=== PATIENT | female | born 1985 | race Caucasian/White ===

== ENCOUNTER 2022-10-05 02:41 | Emergency (ER) | payer OTHER, SELFPAY ==
[2022-10-05 03:51] LABS: SARS-CoV-2 RNA PCR Positive
--- NOTE | 2022-10-05 05:33 | ED.GENADULT ---
HPI - General Adult General Chief complaint: Unspecified Stated complaint: covid swab Time Seen by Provider: 10/05/22 05:29 Source: patient and RN notes reviewed Mode of arrival: ambulatory Limitations: no limitations History of Present Illness HPI narrative: This is a 37 year old transgender male who presents for evaluation of covid. PAtient woke up yesterday feel sick. He reports body ache, sore throat and congestion. He took an at home that was positive so he came to ER for confirmatory test. He denies vomiting but he reports diarrhea. He denies chest pain or sob. Related Data Allergies Allergy/AdvReac Type Severity Reaction Status Date / Time turkey Allergy Mild CONSTIPATED Verified 09/06/16 17:14 Penicillins Allergy Unknown Verified 10/05/22 02:44 Review of Systems Review of Systems: CONSTITUTIONAL: Denies fever, chills, or sweats. EYES: Denies visual changes, redness, or discharge. ENT: repots rhinorrhea, congestion, sore throat, CARDIOVASCULAR: Denies chest pain, palpitations, or edema. RESPIRATORY: Denies cough or dyspnea. GASTROINTESTINAL: Denies abdominal pain, nausea, vomiting, or diarrhea. GENITOURINARY: Denies dysuria or hematuria. SKIN: Denies rash or itching. MUSCULOSKELETAL: Denies back pain, joint pain; reports myalgia NEUROLOGIC: Denies headache, numbness, or weakness. PSYCHIATRIC: Denies anxiety or depression. All systems reviewed & are unremarkable except as noted in HPI and below PMFSH Past Medical History Medical History Patient denies medical problems Social History Social History (Updated 10/05/22 @ 05:36 by Anupama Estrada MD) Smoking packs per day: 1 Smoking cigarettes per day: 20.0 Exam Narrative: GENERAL: Well-appearing, well-nourished, and in no acute distress. HEAD: Normocephalic, atraumatic EYES: EOMI, conjunctiva clear without discharge EARS: TM's clear bilaterally without erythema or dullness NOSE: Nares clear, no rhinorrhea or epistaxis THROAT:Mucous membranes moist, Oropharynx normal without erythema, exudate, peritonsillar swelling or fluctuance NECK: Supple, without lymphadenopathy or mass RESPIRATORY: No respiratory distress, Airway patent, Respirations non-labored, Clear to auscultation without rales, rhonchi or wheeze HEART: Regular rate and rhythm. No murmur heard. Normal peripheral pulses. EXTREMITIES: No edema, normal strength with full range of motion. SKIN: Warm, dry, normal color without rash NEURO: Alert and oriented x3. CN 2-12 grossly intact. No focal deficits. PSYCH: Normal mood and affect. Course Reevaluation(s) Reevaluation #1: I Discussed with patient that swab confirmed covid. I discussed treatment and quarantine. Date: 10/05/22 Time: 05:36 Medical Decision Making Lab Data Labs: Lab Results 10/05/22 Range/Units 03:06 SARS-CoV-2 RNA (RT-PCR) Positive A Discharge Plan Discharge Clinical Impression: COVID-19 virus infection Patient Disposition: Home, Self-Care Condition: Stable Instructions: Antibiotic Form, COVID-19 (Coronavirus Disease 2019) (ED) Additional Instructions: Follow up with your primary care provider. If you develop difficulty breathing, vomiting or chest pain return to eR. Follow-up/Referrals: Damian Masterson MD [Primary Care Provider] - Stand Alone Forms: Work/School Release IP
== END 2022-10-05 05:41 | disposition home or self-care (01) ==
PROVIDERS: Emergency Provider General Practice; PCP Emergency Medicine
DX: U07.1 COVID-19 (principal); F17.210 Nicotine dependence, cigarettes, uncomplicated
CPT/HCPCS: 99283; U0003; U0005

== ENCOUNTER 2022-11-08 17:56 | Emergency (ER) | payer OTHER, SELFPAY ==
--- NOTE | 2022-11-08 18:21 | ED.ABDPAIN ---
HPI - Abdominal Pain General Chief Complaint: Extremity Injury, Upper Stated Complaint: laceration rt hand Time Seen by Provider: 11/08/22 18:30 Source: patient, RN notes reviewed and old records reviewed Mode of arrival: ambulatory Limitations: no limitations History of Present Illness HPI narrative: 37-year-old presents to the [facility] with a laceration between the MCP joints of fingers 4 5. Has multiple abrasions to the hand dorsal aspect as well. States that he was pulling out Jigar decorations when he cut it on a Piece of glass. bleeding is controlled unknown last Tdap Related Data Hx Last Menstrual Period: hysterectomy Home Medications Medication Instructions Recorded Confirmed albuterol sulfate 90 mcg/actuation 1 puff inhalation PRN PRN 11/08/22 11/08/22 aerosol inhaler Shortness Of Breath testosterone cypionate 200 mg/mL 200 mg IM WEEKLY 11/08/22 11/08/22 intramuscular oil valacyclovir 500 mg tablet 500 mg PO DAILY 11/08/22 11/08/22 Allergies Allergy/AdvReac Type Severity Reaction Status Date / Time turkey Allergy Mild CONSTIPATED Verified 11/08/22 18:19 Penicillins Allergy Unknown Verified 11/08/22 18:19 Review of Systems Review of Systems: All systems reviewed & are unremarkable except as noted in HPI and below Constitutional: Constitutional: Reports no additional constitutional complaints Eyes: Eyes: Reports no additional eye complaints ENT: Reports system reviewed and no additional complaints, except as documented Cardiovascular: Cardiovascular: Reports no additional cardiovascular complaints, Denies chest pain and Denies dyspnea Respiratory: Respiratory: Reports no additional respiratory complaints, Denies chest congestion, Denies cough and Denies dyspnea Gastrointestinal: Gastrointestinal: Reports no additional gastrointestinal complaints, Denies abdominal pain, Denies nausea and Denies vomiting Musculoskeletal: Musculoskeletal: Reports no additional musculoskeletal complaints Integumentary/Breasts: Skin/Breast: Reports as per HPI Neurologic: Reports system reviewed and no additional complaints, except as documented Psychiatric: Psychiatric: Reports no additional psychiatric complaints Allergic/Immunologic: Allergic/Immunologic: Reports no additional allergic/immunologic complaints [facility] Past Medical History Medical History (Updated 11/09/22 @ 19:50 by Aline Rowland APRN) Patient denies medical problems Surgical History Surgical History (Updated 11/09/22 @ 19:48 by Aline Rowland APRN) H/O: hysterectomy Social History Social History Smoking packs per day: 1 Smoking cigarettes per day: 20.0 Comments At the time of my signature, I reviewed and agree with the nursing past medical, surgical, social, and family history. There is no relevant family history pertinent to the patient complaint. Exam Const: General: cooperative, healthy appearing, comfortable, no acute distress, well developed, alert, average body habitus and well nourished Nutritional Appearance: average body habitus and well nourished Orientation/consciousness: patient oriented x3 Limitations: no limitations HENMT: Head: normal to inspection Ears: hearing grossly normal bilaterally and external ears normal Face/Nose/Sinus: Normal external nose present, Normal nares present, Normal nasal mucous membranes and turbinates present and normal facial exam Face and sinus: normal facial exam Mouth: Yes Normal oral and palatal mucosa present, Yes lip normal and Yes moist mucous membranes Throat: posterior oropharynx normal and uvula midline Eyes: General: appearance normal, both eyes and all related structures Alignment and Position: alignment normal Periorbital: periorbital findings normal Conjunctivae: conjunctivae normal Pupils: Equal, round and reactive pupils present EOM: EOMs intact bilaterally Neck: Neck: normal visual inspection, f
[2022-11-08 18:23] VITALS: BP 133/84; PULSE 78; RESP 18; TEMP 36.4; O2SAT 99
[2022-11-08] MEDS: TETANUS,DIPHTHERIA,AC PERTUSSIS ADULT (0.5 ML) BOOSTRIX IM (18:59)
== END 2022-11-08 19:08 | disposition home or self-care (01) ==
PROVIDERS: Emergency Provider Nurse Practitioner; PCP Nurse Practitioner Family
DX: S61.411A Laceration without foreign body of right hand, initial encounter (principal); Z23 Encounter for immunization; W25.XXXA Contact with sharp glass, initial encounter
CPT/HCPCS: 12001; 90471; 90715; 99212; G0463

== ENCOUNTER 2023-08-16 05:41 | Emergency (ER) | payer OTHER, SELFPAY ==
[2023-08-16 06:15] VITALS: BP 112/74; PULSE 68; RESP 16; TEMP 36.7; O2SAT 99
--- NOTE | 2023-08-16 07:24 | ED.URI ---
HPI - URI/Sore Throat General Chief Complaint: Upper Respiratory Infection Stated Complaint: sore throat Time Seen by Provider: 08/16/23 07:22 Source: patient and family Mode of arrival: ambulatory Limitations: no limitations History of Present Illness HPI Narrative: 38 years old white male complaining of right-sided sore throat, radiating to right ear, painful swallowing, 2 weeks ago. He denies any fevers, chills, nausea, vomiting or respiratory symptoms. Patient is healthy otherwise, does not take medicine at home. Related Data Home Medications Medication Instructions Recorded Confirmed albuterol sulfate 90 mcg/actuation 1 puff inhalation PRN PRN 11/08/22 11/08/22 aerosol inhaler Shortness Of Breath testosterone cypionate 200 mg/mL 200 mg IM WEEKLY 11/08/22 11/08/22 intramuscular oil valacyclovir 500 mg tablet 500 mg PO DAILY 11/08/22 11/08/22 Allergies Allergy/AdvReac Type Severity Reaction Status Date / Time turkey Allergy Mild CONSTIPATED Verified 08/16/23 06:20 Penicillins Allergy Unknown Verified 08/16/23 06:20 Review of Systems Review of Systems: All systems reviewed & are unremarkable except as noted in HPI and below PMFSH Past Medical History Medical History Patient denies medical problems Surgical History Surgical History H/O: hysterectomy Social History Social History Smoking packs per day: 1 Smoking cigarettes per day: 20.0 Exam Narrative: General appearance: Well-developed, well-nourished Skin: Normal color Head: Normocephalic, nontraumatic Eyes: Clear conjunctiva ENT: Oropharynx normal, ears normal, nose normal, no swelling, no rash, no mass, no lymphadenopathy Neck: Supple, nontender Chest and respiratory: Airway patent, no respiratory distress, no accessory muscle use Heart: Regular rate/rhythm Abdomen: Soft, nontender, no organomegaly, quiet bowel sounds Vascular: Normal peripheral pulses, normal capillary refill. 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, no gross motor deficit Course Vital Signs Vital signs: Vital Signs Temperature 36.7 C 08/16/23 06:15 Pulse Rate 68 08/16/23 06:15 Respiratory Rate 16 08/16/23 06:15 Blood Pressure 112/74 08/16/23 06:15 Pulse Oximetry 99 08/16/23 06:15 Oxygen Delivery Room Air 08/16/23 06:15 Temperature 36.7 C 08/16/23 06:15 Pulse Rate 68 08/16/23 06:15 Respiratory Rate 16 08/16/23 06:15 Blood Pressure 112/74 08/16/23 06:15 Pulse Oximetry 99 08/16/23 06:15 Oxygen Delivery Room Air 08/16/23 06:15 MDM - URI/Sore Throat MDM Narrative Medical decision making narrative: Patient presents with right sore throat and painful swallowing for 2 weeks, physical examination was unremarkable. Rapid strep and COVID test showed negative results I plan to discharge patient on Augmentin for possible otitis media. And to follow-up with family physician. Differential Diagnosis Differential diagnosis: Likely upper respiratory infection, pharyngitis and other (Otitis media) Medical Records Attestation: I reviewed the patient's medical records. Lab Data Attestation: I reviewed the patient's lab results. Labs: Lab Results 08/16/23 Range/Units 07:43 Group A Strep (PCR) Not detected (Negative) Critical Care Time Critical Care Time Critical Care Time: Yes Total Critical Care Time: 10 Discharge Plan Discharge Clinical Impression: Acute pharyngitis Qualifiers: Pharyn
[2023-08-16 08:14] LABS: Strep Group A RT-PCR NOT DETECTED (Negative)
[2023-08-16 09:48] VITALS: BP 115/70; PULSE 70; RESP 18; O2SAT 99
== END 2023-08-16 09:50 | disposition home or self-care (01) ==
PROVIDERS: Emergency Provider Emergency Medicine; PCP Nurse Practitioner Family
DX: J02.9 Acute pharyngitis, unspecified (principal); H92.01 Otalgia, right ear; F17.210 Nicotine dependence, cigarettes, uncomplicated
CPT/HCPCS: 87651; 99283

== ENCOUNTER 2024-08-19 13:46 | Emergency (ER) | payer OTHER, SELFPAY ==
--- NOTE | ~2024-08-19 | XR_ITS ---
EXAMINATION: XR chest 2V DATE: 08/19/2024 14:08 INDICATION: Pain with cough TECHNIQUE: PA and lateral views of the chest were obtained. COMPARISON: Chest radiograph dated 09/01/2016 FINDINGS: The lungs are clear with no focal airspace opacities, pulmonary edema, pleural effusion or pneumothor ax. The cardiomediastinal silhouette is normal. Visualized bones and soft tissues are unremarkable. IMPRESSION: 1. No acute cardiopulmonary disease. Reviewed, dictated and finalized at location B.
[2024-08-19 13:56] VITALS: BP 117/73; PULSE 68; RESP 18; TEMP 36.7; O2SAT 99
--- NOTE | 2024-08-19 13:56 | ED.URI ---
HPI - URI/Sore Throat General Chief Complaint: Upper Respiratory Infection Stated Complaint: chest pain Time Seen by Provider: 08/19/24 13:56 Source: patient, RN notes reviewed and old records reviewed Mode of arrival: ambulatory Limitations: no limitations History of Present Illness HPI Narrative: patient presents with complaints chest wall pain with cough. Reportedly, symptoms began suddenly just prior to arrival. Patient was at work, coughed, felt a pain behind the sternum. Has realized that this is consistently painful every time he coughs. Denies any injury or trauma. Denies any recent illness. Denies fever, chills sweats. Denies pain at any time except with cough or on palpation. Related Data Home Medications Medication Instructions Recorded Confirmed valacyclovir 500 mg tablet mg 08/19/24 Allergies Allergy/AdvReac Type Severity Reaction Status Date / Time turkey Allergy Mild CONSTIPATED Verified 08/16/23 06:20 Penicillins Allergy Unknown Verified 08/19/24 13:57 Review of Systems Review of Systems: All systems reviewed & are unremarkable except as noted in HPI and below Constitutional: Constitutional: Reports as per HPI and Reports no additional constitutional complaints ENT: Reports system reviewed and no additional complaints, except as documented Cardiovascular: Cardiovascular: Reports as per HPI and Reports no additional cardiovascular complaints Respiratory: Respiratory: Reports as per HPI, Reports no additional respiratory complaints and Reports pain with cough Gastrointestinal: Gastrointestinal: Reports no additional gastrointestinal complaints [facility] Past Medical History Medical History Patient denies medical problems Surgical History Surgical History H/O: hysterectomy Social History Social History Smoking packs per day: 1 Smoking cigarettes per day: 20.0 Comments At the time of my signature, I reviewed and agree with the nursing past medical, surgical, social, and family history. There is no relevant family history pertinent to the patient complaint. Exam Const: General: cooperative, no acute distress, alert and awake Orientation/consciousness: oriented to person, oriented to place and oriented to time HENMT: Head: normal to inspection Chest: Chest palpation & inspection: tenderness sternum Resp: Effort & Inspection: normal respiratory effort, able to speak in complete sentences and no respiratory distress Auscultation: clear to auscultation bilaterally, no crackles, no rales, no rhonchi and no wheezes Cardio: Palpation: normal PMI Rate: regular rate Rhythm: regular rhythm Heart sounds: S1 normal heart sound present and S2 normal heart sound present Neuro: General: oriented to person, oriented to place and oriented to time Cranial nerves: Yes CN's II-XII intact bilaterally Psych: Appearance: grossly normal Thought process: Normal thought process present Insight: Good insight present (Psych) Judgement: Good judgement present (Psych) Course Course Level of Care: Express Care Visit Vital Signs Vital signs: Reviewed MDM - URI/Sore Throat MDM Narrative Medical decision making narrative: Patient in no distress, normal chest x-ray. Reproducible chest wall pain with cough and palpation. Advised [id number] NSAIDs. Follow with primary care provider. Emergency department for new or worse symptoms. Discharge instructions reviewed with patient, as well as provided in writing per nursing staff. The instructions also include specific and strict return/GO TO THE ER as well as f/u information. All questions have been answered, and the patient deny any further questions with discharge and discharge plan. Some parts of this dictation were generated by voice recognition software and may contain typ
[2024-08-19 13:58] VITALS: BP 117/73; PULSE 68; RESP 18; TEMP 36.7; O2SAT 99
== END 2024-08-19 14:23 | disposition home or self-care (01) ==
PROVIDERS: Emergency Provider Nurse Practitioner Family
DX: R07.89 Other chest pain (principal); F17.210 Nicotine dependence, cigarettes, uncomplicated
CPT/HCPCS: 71046; 99213; G0463

== ENCOUNTER 2024-12-30 11:24 | Emergency (ER) | payer OTHER, SELFPAY ==
--- NOTE | ~2024-12-30 | XR_ITS ---
EXAMINATION: XR wrist RT min 3V DATE: 12/30/2024 11:50 INDICATION: Right wrist injury TECHNIQUE: Posteroanterior, ulnar deviation, oblique, and lateral views of the right wrist were obtai genaro. COMPARISON: 10/20/2015 FINDINGS: Again seen is 2 mm ulnar positive variance. Alignment is otherwise normal. No fracture. Joint spaces are normal. Soft tissues are unremarkable. IMPRESSION: 1. No acute osseous abnormality. Reviewed, dictated and finalized at location B. MBLY INSPECTOR
[2024-12-30 11:32] VITALS: BP 117/66; PULSE 77; RESP 18; TEMP 36.2; O2SAT 100
--- NOTE | 2024-12-30 11:42 | ED.UPPEXIN ---
HPI - Extremity Injury (Upper) General Chief Complaint: Extremity Injury, Upper Stated Complaint: RT wrist pain History of Present Illness HPI narrative: Patient is a 39-year-old female to male transition with complete hysterectomy and bilateral mastectomy, presents to [facility] with right wrist pain following a ground level fall. he states that he slipped and fell on ice and fell onto an outstretched hand. He has pain at the wrist, worse with movement and notes that the right shoulder is mildly sore but feels more muscular in nature. He denies hitting his head or LOC. He has no neck or back pain. He denies any additional injuries, he is right hand dominant. No modifying factors were attempted prior to arrival Related Data Home Medications ?Medication ?Instructions ?Recorded ?Confirmed ?Last Taken ?Type valacyclovir 500 mg tablet mg 08/19/24 Unknown History Allergies Allergy/AdvReac Type Severity Reaction Status Date / Time turkey Allergy Mild CONSTIPATED Verified 12/30/24 11:37 Penicillins Allergy Unknown Verified 12/30/24 11:37 Review of Systems Musculoskeletal: Comments: refer HPI [facility] Past Medical History Medical History Patient denies medical problems Surgical History Surgical History H/O: hysterectomy Social History Social History Smoking packs per day: 1 Smoking cigarettes per day: 20.0 Exam Const: General: cooperative, healthy appearing, comfortable, no acute distress and well developed Nutritional Appearance: average body habitus Orientation/consciousness: oriented to person, oriented to place, oriented to time and patient oriented x3 HENMT: Head: normal to inspection Ears: hearing grossly normal bilaterally Face/Nose/Sinus: Normal external nose present Face and sinus: normal facial exam, sinuses nontender and face symmetric Mouth: Yes Normal oral and palatal mucosa present and Yes lip normal Teeth and gingiva: dentition normal and gingiva normal Throat: posterior oropharynx normal, tonsils normal and uvula midline Eyes: General: appearance normal, both eyes and all related structures Visual Albarado: normal visual albarado by confrontation Alignment and Position: alignment normal Periorbital: periorbital findings normal Eyelids: eyelids normal Cornea: corneas normal Pupils: Equal, round and reactive pupils present EOM: EOMs intact bilaterally Direct Ophthalmoscopy: normal light reflex and no photophobia Neck: Neck: normal visual inspection, full ROM, no lymphadenopathy, no meningeal signs, trachea midline and supple Other: no C-spine point tenderness, no step-offs no cervical paraspinal muscle tenderness to palpation, no palpable spasm Resp: Effort & Inspection: normal respiratory effort and able to speak in complete sentences Auscultation: clear to auscultation bilaterally Percussion: percussion normal Cardio: Jugular venous distension: no JVD Palpation: normal PMI Rate: regular rate Rhythm: regular rhythm Heart sounds: S1 normal heart sound present and S2 normal heart sound present Back/Spine/Pelvis: Back: no CVA tenderness Skin: General skin exam: normal color and no rashes or lesions noted Lesions: no lesions Rashes: no rashes Neuro: General: oriented to person, oriented to place, oriented to time and patient oriented x3 Cranial nerves: Yes CN's II-XII intact bilaterally Extrem: Other: patient is tender palpation with mild swelling over the right distal radius, there is no crepitus or gross deformity noted. The proximal forearm, right hand, right elbow and right shoulder are nontender to palpation. Patient does report some mild stiffness in the right pectoralis and anterior deltoid muscles on the right side, there is no palpable spasm, range of motion is intact in the right shoulder without crepitus or discomfort. distal PMS intact Course Course Emergency Course: RIGHT WRIST PLAIN FILMS ARE UNREMARKABLE FOR ACUTE FINDIngs Level of Care: Express Care Visit (04312) Vital Signs Vital signs: Vital Signs Temperature 36.2 C L 12/30/24 11:32 Pulse Rate 77 12/30/24 11:32 Respiratory Rate 18 12/30/24 11:32 Blood Pressure 117/66 12/30/24 11:32 Pulse Oximetry 100 12/30/24 11:32 Oxygen Delivery Room Air 12/30/24 11:32 Temperature 36.2 C L 12/30/24 11:32 Pulse Rate 77 12/30/24 11:32 Respiratory Rate 18 12/30/24 11:32 Blood Pressure 117/66 12/30/24 11:32 Pulse Oximetry 100 12/30/24 11:32 Oxygen Delivery Room Air 12/30/24 11:32 MDM - Extremity Injury (Upper) MDM Narrative Medical decision making narrative: patient is placed in Ruddy wrap, will treat for wrist sprain, follow-up with PCP in 10-14 days if pain is improving for repeat or advanced outpatient imaging. Patient verbalized understanding is agreeable with discharge plan of care. Rest, ice, elevation, ibuprofen and Robaxin as prescribed may be taken additionally for symptom relief Discharge Plan Discharge Clinical Impression: Fall from ground level, Sprain and strain of right wrist Patient Disposition: Home, Self-Care Condition: Stable Instructions: Antibiotic Form, Wrist Sprain (ED) Additional Instructions: REST, ICE, ELEVATE THE RIGHT WRIST, WEAR RUDDY BANDAGE FOR COMPRESSION AND SUPPORT. TAKE IBUPROFEN DIRECTED [id number] FOR INFLAMMATION RELIEF. ROBAXIN FOR MUSCLE SPASM RELIEF PRESCRIBED. FOLLOW-UP WITH YOUR PRIMARY DOCTOR IN 10-14 DAYS IF SYMPTOMS ARE NOT IMPROVING, SOONER IF SYMPTOMS CHANGE OR WORSEN Patient Language: Korean Prescriptions: New methocarbamol 500 mg tablet 500 mg PO QID PRN (Reason: SPASM) Qty: 20 0RF No Action valacyclovir 500 mg tablet Follow-up/Referrals: Lynne Rogers APRN [Primary Care Provider] - Time of Disposition: 12:05
== END 2024-12-30 12:14 | disposition home or self-care (01) ==
PROVIDERS: Emergency Provider Nurse Practitioner Family; PCP Nurse Practitioner Family
DX: S63.501A Unspecified sprain of right wrist, initial encounter (principal); W00.0XXA Fall on same level due to ice and snow, initial encounter; F17.210 Nicotine dependence, cigarettes, uncomplicated
CPT/HCPCS: 73110; 99213; G0463

== ENCOUNTER 2025-05-31 11:03 | Emergency (ER) | payer OTHER, SELFPAY ==
--- NOTE | ~2025-05-31 | XR_ITS ---
EXAMINATION: [id number] DATE: 05/31/2025 11:55 INDICATION: Shortness of breath and anterior right lower rib pain post 20 foot fall TECHNIQUE: A frontal inspiratory view of the chest and 3 views of the right ribs were obtained. COMPARISON: 09/01/2016 FINDINGS: No rib fractures identified. Are clear with no focal airspace opacities, pulmonary edema, pleural eff usion or pneumothorax. Cardiomediastinal silhouette is normal. IMPRESSION: 1. No rib fracture or acute cardiopulmonary disease. Reviewed, dictated and finalized at location B.
[2025-05-31 11:17] VITALS: BP 106/70; PULSE 81; RESP 18; TEMP 36.6; O2SAT 99
--- OUTSIDE RECORDS SUMMARY | 2025-05-31 11:17 | XMS_ITS | Patient Health Record ---
Author Organization [facility] [employer] Address [address] [facility] [address] [place] [address] Care Team Providers Care Console Manager Name Role Phone Lynne Banuelos Primary Care Provider Mely Aristides Grady Unavailable [phone] Latonia Camarena Unavailable [phone] Facundo Glasgow Unavailable [phone] Allergies Allergen (clinical drug ingredient) Drug/Non Drug Allergy documented on EMR Reaction Allergy Type Onset Date Status penicillin V PENICILLIN V (uncoded) Unknown Allergy 03/01 Active Results Component Value Reference Range Notes UDT Reviewed date:04/07/2025 05:22:22 PM Interpretation: Performing Lab: Notes/Report: THC n 0 - 50 ng/ml Cocaine n 0 - 300 ng/ml Amphetamine n 0 - 1000 ng/ml Buprenorphine (BUP) n 0 - 10 ng/ml Secobarbital (Bar) n 0 - 300 ng/ml Oxazepam (BZO) n 0 - 300 ng/ml 2-yqtptvlshp-8,8-slrzasae-3,3-diphenylpyrrolidine (HOLLY P) n 0 - 300 ng/ml Methamphetamine (MET) n 0 - 1000 ng/ml Methylenedioxymethamphetamine (MDMA) n 0 - 500 ng/ml Morphine (MOP 300/[id number]) n 0 - 300 ng/ml Methadone (MTD) n 0 - 300 ng/ml Phencyclidine (PCP) n 0 - 25 ng/ml Nortriptyline (TCA) n 0 - 1000 ng/ml Oxycodone n 0 - 300 ng/ml x n 0 - 300 ng/ml UDT Reviewed date:04/05/2025 05:34:29 PM Interpretation: Performing Lab: Notes/Report: THC N 0 - 50 ng/ml Cocaine N 0 - 300 ng/ml Amphetamine P 0 - 1000 ng/ml Buprenorphine (BUP) N 0 - 10 ng/ml Secobarbital (Bar) N 0 - 300 ng/ml Oxazepam (BZO) P 0 - 300 ng/ml 7-pakuobkolf-3,0-hbzdrjzt-5,3-diphenylpyrrolidine (HOLLY P) N 0 - 300 ng/ml Methamphetamine (MET) N 0 - 1000 ng/ml Methylenedioxymethamphetamine (MDMA) N 0 - 500 ng/ml Morphine (MOP 300/[id number]) N 0 - 300 ng/ml Methadone (MTD) N 0 - 300 ng/ml Phencyclidine (PCP) N 0 - 25 ng/ml Nortriptyline (TCA) N 0 - 1000 ng/ml Oxycodone N 0 - 300 ng/ml x N 0 - 300 ng/ml Reason For Referral No Information Medications Medication SIG (Take, Route, Frequency, Duration) Notes Start Date End Date Status valACYclovir HCl 500 MG Oral 03/10/2023 Not-Taking buPROPion HCl ER (SR) 150 MG Oral 03/10/2023 Not-Taking Methylphenidate HCl ER (OSM) 54 MG TAKE 1 TABLET BY MOUTH DAILY IN THE MORNING FOR 14 DAYS Oral; Duration: 14 Days Not-Taking hydrOXYzine HCl 25 MG Oral 03/10/2023 Not-Taking Cyclobenzaprine HCl 5 MG Oral 03/10/2023 Not-Taking Sertraline HCl 100 MG Oral 03/10/2023 Not-Taking valACYclovir HCl 1 GM Oral 03/10/2023 Not-Taking Acetaminophen Extra Strength 500 MG Oral 03/10/2023 Not-Taking hydrOXYzine Pamoate 25 MG Oral 03/10/2023 Not-Taking LORazepam 0.5 MG 1 tablet Orally Once a day; Duration: 14 days PRN 05/03/2025 Active Ibuprofen 600 MG Oral 03/10/2023 No t-Taking Testosterone Cypionate 200 MG/ML Intramuscular 03/10/2023 Active Cetirizine HCl 10 MG Oral 03/10/2023 Not-Taking Fluticasone Propionate Diskus 50 MCG/ACT Inhalation *Reorder from [employer] for eRx and Interaction Alerts* 03/10/2023 Active oxyCODONE HCl 5 MG Oral 03/10/2023 Not-Taking ProAir HFA 108 (90 Base) MCG/ACT Inhalation 03/10/2023 Active Docusate Sodium 100 MG Oral 03/10/2023 Not-Taking LORazepam 0.5 MG 1 tablet Orally Once a day; Duration: 14 days As needed Active Sertraline HCl 50 MG Oral 03/10/2023 Not-Taking Sertraline HCl 100 mg 1 tablet Orally ONCE DAILY; Duration: 30 days Active Ondansetron 4 MG Oral 03/10/2023 No t-Taking Methylphenidate HCl ER (OSM) 36 MG 1 tablet in the morning Oral Once a day; Duration: 30 days 05/26/2025 Active Immunizations Vaccine Route Administration Date Status Comme mychal Buttsa Covid-19 Vaccine 1st dose Unknown 12/27/2021 Ad ministered Social History Tobacco Use: Social History Observation Description Date Details (start date - stop date) Current Smoker 05/01/1995 - NA Sex Assigned At : Social History Observation Description Sex Assigned At Female Tobacco Control (Standard) Question Answer Notes Tobacco use: Current smoker When did you start smoking? 05/01/1995 How often do you smoke cigarettes? Every day How many cigarettes a day do you smoke? 11-20 How soon after you wake up d o you smoke your first cigarette? Within 5 minutes Are you interested in quitting? Thinking about q uitting AUDIT-C (Standard) Question Answer Notes Points 2 Interpretation Positive Did you have a drink contain ing alcohol in the past year? Yes How often did you have six o r more drinks on one occasion in the past year? Never (0 point) How many drinks did you have on a typical day when you were drinking in the past year? 3 or 4 drinks (1 point) How often did you have a dri nk containing alcohol in the past year? Monthly or less (1 point) Problems Problem Type SNOMED Code ICD Code Onset Dates Problem Status W/U Status Risk Notes Problem Generalized anxiety disorder (93651024) Generalized anxiety disorder (F41.1) 03/10/20 Active confirmed Problem Posttraumatic stress disorder (25495349) Post-traumatic stress disorder, chronic (F43.12) 03/10/20 Active confirmed Problem Adjustment disorder with mixed anxiety and depressed mood (109835410) Adjustment disorder with mixed anxiety and depressed mood (F43.23) 03/10/20 Active confirmed Problem Attention deficit hyperactivity disorder, predominantly inattentive type (disorder) (05583633) Attention and concentration deficit (R41.840) Active confirmed Problem Nondependent alcohol abuse in remission (152900493) Alcohol abuse, in remission (F10.11) 03/10/20 Active confirmed Problem 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 Problem Attention deficit hyperactivity disorder (922034905) Attention deficit hyperactivity disorder (ADHD), unspecified ADHD type (F90.9) Active confirmed Vital Signs Heart Rate 56 /min 05/26/2025 Height-cm 160.02 cm 05/26/2025 Blood pressure diastolic 66 mm Hg 05/26/2025 Weight-kg 66.5 kg 05/26/2025 Height 63.00 in 05/26/2025 Blood pressure systolic 100 mm Hg 05/26/2025 Weight 146.6 lbs 05/26/2025 BMI 25.97 kg/m2 05/26/2025 Encounters Encounter Location Date Provider Diagnosis [employer] [address] [facility] [address] [facility] [address] [place] [address] 01/26/2025 Aristides Galvin Adjustment disorder with mixed anxiety and depressed mood F43.23 ; Generalized anxiety disorder F41.1 ; Tobacco use Z72.0 ; Alcohol abuse, in remission F10.11 ; Post-traumatic stress disorder, chronic F43.12 and Transsexualism F64.0 [employer] [facility] [address] [facility] [address] [place] [address] 03/01/2025 Aristides Galvin Generalized anxiety disorder F41.1 ; Adjustment disorder with mixed anxiety and depressed mood F43.23 ; Alcohol abuse, in remission F10.11 ; Nicotine use Z72.0 ; Tobacco use Z72.0 ; Post-traumatic stress disorder, chronic F43.12 ; Encounter for screening for depression Z13.31 ; Encounter for screening for cardiovascular disorders Z13.6 and Transsexualism F64.0 [employer] [facility] [address] [facility] [address] [place] [address] 04/04/2025 Latonia Restrepo Post-traumatic stress disorder, chronic F43.12 ; Adjustment disorder with mixed anxiety and depressed mood F43.23 and Generalized anxiety disorder F41.1 [employer] [address] [facility] [address] [place] [address] 04/05/2025 Aristides Galvin Negative depression screening Z13.31 ; Encounter for screening for cardiovascular disorders Z13.6 ; Nicotine use Z72.0 ; Generalized anxiety disorder F41.1 ; Adjustment disorder with mixed anxiety and depressed mood F43.23 ; Alcohol abuse, in remission F10.11 ; Tobacco use Z72.0 ; Post-traumatic stress disorder, chronic F43.12 ; Encounter for screening for depression Z13.31 ; Transsexualism F64.0 and Attention and concentration deficit R41.840 [facility] [place] [address] [address] 04/07/2025 Facundo Glasgow Attention deficit hyperactivity disorder (ADHD), unspecified ADHD type F90.9 [facility] [place] [address] [address] 04/21/2025 Aristides Donnellya Encounter for screening for depression Z13.31 ; Nicotine use Z72.0 ; Encounter for screening for cardiovascular disorders Z13.6 ; Generalized anxiety disorder F41.1 ; Adjustment disorder with mixed anxiety and depressed mood F43.23 ; Alcohol abuse, in remission F10.11 ; Tobacco use Z72.0 ; Post-traumatic stress disorder, chronic F43.12 ; Transsexualism F64.0 and Attention deficit hyperactivity disorder (ADHD) F90.9 [facility] [place] [address] [address] 05/26/2025 Latonia Restrepo Generalized anxiety disorder F41.1 and Post-traumatic stress disorder, chronic F43.12 [facility] [employer] [address] [address] 05/26/2025 Aristides Galvin Encounter for screening for cardiovascular disorders Z13.6 ; Encounter for screening for depression Z13.31 ; Nicotine use Z72.0 ; Generalized anxiety disorder F41.1 ; Adjustment disorder with mixed anxiety and depressed mood F43.23 ; Alcohol abuse, in remission F10.11 ; Tobacco use Z72.0 ; Post-traumatic stress disorder, chronic F43.12 ; Transsexualism F64.0 and Attention deficit hyperactivity disorder (ADHD) F90.9 [facility] [address] [address] [place] [address] 01/26/2025 Aristides Laooza [facility], [facility] [address] [place] [address] [place] [address] 01/27/2025 Aristides Galvin Generalized anxiety disorder F41.1 [facility], [facility] [address] [place] [address] [place] [address] 01/27/2025 Aristides Galvin Generalized anxiety disorder F41.1 [facility], [facility] [address] [place] [address] [place] [address] 02/01/2025 Aristides Galvin [facility], [facility] [address] [address] [place] [address] 02/01/2025 Aristides Laooza [facility], [facility] [address] [place] [address] [place] [address] 02/01/2025 [facility], [facility] [address] [place] [address] 02/02/2025 Aristides Laooza [facility], [facility] [address] [address] [place] [address] 02/03/2025 Aristides Galvin [facility], [facility] [address] [place] [address] 02/16/2025 Aristides Galvin Generalized anxiety disorder F41.1 [facility], [facility] [address] [place] [address] 02/16/2025 Aristides Galvin Generalized anxiety disorder F41.1 [facility], [facility] [address] [place] [address] 03/11/2025 Aristides Galvin Generalized anxiety disorder F41.1 [facility], [facility] [address] [place] [address] 03/22/2025 Aristides Galvin [facility], [facility] [address] [place] [address] 05/02/2025 Aristidesomari Donnellya Attention deficit hyperactivity disorder (ADHD) F90.9 [facility], [facility] [address] [place] [address] 05/11/2025 Aristides Galvin Attention and concentration deficit R41.840 Assessments Encounter Date Diagnosis (ICD Code) Assessment Notes Treatment Notes Treatment Clinical Notes Section Notes 05/02/2025 Attention deficit hyperactivity disorder (ADHD) (ICD-10 - F90.9) 05/11/2025 Attention and concentration deficit (ICD-10 - R41.840) 05/26/2025 Encounter for screening for cardiovascular disorders (ICD-10 - Z13.6) 04/21/2025 Encounter for screening for depression (ICD-10 - Z13.31) 04/21/2025 Nicotine use (ICD-10 - Z72.0) 05/26/2025 Generalized anxiety disorder (ICD-10 - F41.1) 05/26/2025 Post-traumatic stress disorder, chronic (ICD-10 - F43.12) 01/26/2025 Adjustment disorder with mixed anxiety and depressed mood (ICD-10 - F43.23) 01/27/2025 Generalized anxiety disorder (ICD-10 - F41.1) 01/27/2025 Generalized anxiety disorder (ICD-10 - F41.1) 02/16/2025 Generalized anxiety disorder (ICD-10 - F41.1) 02/16/2025 Generalized anxiety disorder (ICD-10 - F41.1) 03/01/2025 Generalized anxiety disorder (ICD-10 - F41.1) 03/11/2025 Generalized anxiety disorder (ICD-10 - F41.1) 04/04/2025 Post-traumatic stress disorder, chronic (ICD-10 - F43.12) 04/04/2025 Adjustment disorder with mixed anxiety and depressed mood (ICD-10 - F43.23) 04/05/2025 Encounter for screening for cardiovascular disorders (ICD-10 - Z13.6) 04/05/2025 Negative depression screening (ICD-10 - Z13.31) 04/07/2025 Attention deficit hyperactivity disorder (ADHD), unspecified ADHD type (ICD-10 - F90.9) Based on the image you submitted and the corroborating ADHD assessment data for Hallie Martinez (female, age 14), here is a focused interpretation of the findings and a comprehensive non-pharmacologic treatment plan tailored to her inattentive subtype of ADHD. Clinical Summary ADHD Profile SWAN result indicates inattentive ADHD, with score +0.89 exceeding the clinical threshold of +0.745 Hyperactive/impulsi ve symptoms are not present (score: -0.89) She has difficulties in: Sustained attention Avoiding careless mistakes Following through on work Organizing tasks Remembering daily activities Cognitive markers: No markers outside typical range, but reaction time variability (SART: 4th percentile) and interference ratio for reaction time (Double Trouble: 19th percentile) are low enough to support functional attention deficits Recommended Non-Pharmacologic Treatment Plan 1. Cognitive Behavioral Therapy (CBT) Focused on Executive Functioning Target procrastination, disorganization, and forgetfulness Incorporate self-monitoring, task chunking, and cognitive restructuring to reduce internal distractions Weekly sessions for 8 to 12 weeks have demonstrated efficacy in adolescents with inattentive ADHD 2. Academic and Environmental Interventions Provide structured environments: quiet study areas, minimized distractions Use visual task organizers and checklists Break tasks into smaller steps with external reminders (alarms, color-coded calendars) Teacher support through an IEP or 504 Plan to include: Extended time on assignments/tests Preferential seating Regular check-ins on homework completion 3. Cognitive Training and Attention-Building Exercises Recommend software-based tools (e.g., [employer] or [employer]) or paper-based executive function tasks Emphasize daily practice (15-20 minutes) on: Working memory games Sustained attention tasks Reaction time drills 4. Mindfulness-Based Attention Training Introduce mindful breathing, body scanning, and guided imagery Group or individual sessions with school counselor or therapist Improves metacognitive awareness and emotional regulation in inattentive adolescents 5. Parent-Adolescent Skills Training Teach family members how to: Reinforce routines and predictability at home Avoid punitive responses to forgetfulness Implement positive reinforcement strategies 6. Physical Activity Encourage daily aerobic exercise (30 minutes) Activities like swimming, dance, martial arts, or team sports improve attention regulation, self-control, and sleep quality 7. Sleep Hygiene Education Set consistent sleep and wake times Limit screen exposure 1 hour before bedtime Use wind-down routines to reduce cognitive arousal in the evening Monitoring and Follow-Up Reassess functional outcomes in 3 months using SWAN and school feedback Periodic review of cognitive tasks (e.g., SART performance) to track engagement and improvement Pair interventions with clinical interviews and adaptive feedback from parents and educators 01/26/2025 Generalized anxiety disorder (ICD-10 - F41.1) 04/04/2025 Generalized anxiety disorder (ICD-10 - F41.1) 03/01/2025 Adjustment disorder with mixed anxiety and depressed mood (ICD-10 - F43.23) 05/26/2025 Encounter for screening for depression (ICD-10 - Z13.31) 04/05/2025 Nicotine use (ICD-10 - Z72.0) 04/21/2025 Encounter for screening for cardiovascular disorders (ICD-10 - Z13.6) 05/26/2025 Nicotine use (ICD-10 - Z72.0) 03/01/2025 Alcohol abuse, in remission (ICD-10 - F10.11) 01/26/2025 Tobacco use (ICD-10 - Z72.0) 04/21/2025 Generalized anxiety disorder (ICD-10 - F41.1) 04/05/2025 Generalized anxiety disorder (ICD-10 - F41.1) 04/05/2025 Adjustment disorder with mixed anxiety and depressed mood (ICD-10 - F43.23) 03/01/2025 Nicotine use (ICD-10 - Z72.0) 01/26/2025 Alcohol abuse, in remission (ICD-10 - F10.11) 04/21/2025 Adjustment disorder with mixed anxiety and depressed mood (ICD-10 - F43.23) 05/26/2025 Generalized anxiety disorder (ICD-10 - F41.1) 04/21/2025 Alcohol abuse, in remission (ICD-10 - F10.11) 05/26/2025 Adjustment disorder with mixed anxiety and depressed mood (ICD-10 - F43.23) 03/01/2025 Tobacco use (ICD-10 - Z72.0) 04/05/2025 Alcohol abuse, in remission (ICD-10 - F10.11) 01/26/2025 Post-traumatic stress disorder, chronic (ICD-10 - F43.12) 04/05/2025 Tobacco use (ICD-10 - Z72.0) 01/26/2025 Transsexualism (ICD-10 - F64.0) 03/01/2025 Post-traumatic stress disorder, chronic (ICD-10 - F43.12) 04/21/2025 Tobacco use (ICD-10 - Z72.0) 05/26/2025 Alcohol abuse, in remission (ICD-10 - F10.11) 05/26/2025 Tobacco use (ICD-10 - Z72.0) 03/01/2025 Encounter for screening for depression (ICD-10 - Z13.31) 04/05/2025 Post-traumatic stress disorder, chronic (ICD-10 - F43.12) 04/21/2025 Post-traumatic stress disorder, chronic (ICD-10 - F43.12) 04/05/2025 Encounter for screening for depression (ICD-10 - Z13.31) 03/01/2025 Encounter for screening for cardiovascular disorders (ICD-10 - Z13.6) 05/26/2025 Post-traumatic stress disorder, chronic (ICD-10 - F43.12) 04/21/2025 Transsexualism (ICD-10 - F64.0) 04/21/2025 Attention deficit hyperactivity disorder (ADHD) (ICD-10 - F90.9) 05/26/2025 Transsexualism (ICD-10 - F64.0) 03/01/2025 Transsexualism (ICD-10 - F64.0) 04/05/2025 Transsexualism (ICD-10 - F64.0) 04/05/2025 Attention and concentration deficit (ICD-10 - R41.840) 05/26/2025 Attention deficit hyperactivity disorder (ADHD) (ICD-10 - F90.9) 01/26/2025 Other 1. Anxiety and panic disorder: - Patient reports increased anxiety and panic, particularly in social situations and related to current events. - History of using bupropion SR, which was discontinued. - Tried THC gummies, which led to increased paranoia and hospitalization. Plan: - Restart medication for anxiety. - Begin with 25 mg of bupropion SR for one week, then increase to 50 mg. - Prescribe a small supply of lorazepam (Ativan) 0.5 mg, 14 tablets, to be used as needed for acute panic episodes. 2. Insomnia: - Patient reports difficulty sleeping and frequent awakenings. Plan: - Monitor sleep patterns and assess the impact of anxiety treatment on sleep quality. - Consider sleep hygiene recommendations. - Evaluate the need for sleep aids in future visits if necessary. 3. Obsessive behavior and survivalism: - Patient exhibits obsessive behavior related to survivalism, including excessive research and purchasing of survival gear. Plan: - Address these behaviors in therapy sessions and monitor progress. - Encourage the patient to discuss these concerns with the therapist. 4. Social isolation and avoidance: - Patient reports isolating himself at home and avoiding public places due to anxiety and panic. Plan: - Encourage the patient to engage in therapy to address these issues. - Develop coping strategies for managing anxiety in social situations. - Monitor progress and reassess the need for additional interventions as needed. 5. Request for therapy: - Patient expresses a desire to start therapy and reconnect with a previous therapist, Latonia. Plan: - Facilitate the patient's reconnection with Latonia for therapy sessions. - Encourage the patient to discuss his concerns, anxieties, and obsessive behaviors in therapy. 6. Medication reconciliation: - Current medications include testosterone, albuterol, cetirizine, and acyclovir as needed. Plan: - Continue current medications as prescribed. - Monitor for any potential interactions or side effects with newly prescribed anxiety medications. 03/01/2025 Ehsan Hairston, patient with history of ADHD and recent hysterectomy, presents with anxiety and mood concerns, currently managed with sertraline and bupropion. Anxiety and Mood Disorder Assessment: Patient reports improvement with current medication regimen of sertraline 50 mg daily. However, experiences anxiety bursts in the evenings after work. Patient notes significant improvement in daily functioning, including reduced social media use and improved ability to manage intrusive thoughts. There is a possible wear-off effect of medication in the evenings. Patient also reports increased forgetfulness and hyperfixation, which may be related to hormonal changes post-hysterectomy and testosterone replacement therapy. Plan: - Increase sertraline to 100 mg daily, with instructions to take 50 mg in the morning and 50 mg in the evening to address potential wear-off effect - Continue as-needed lorazepam for breakthrough anxiety - Monitor for improvement in evening anxiety symptoms and overall mood - Discuss hormone replacement therapy's impact on ADHD symptoms at next follow-up - Encourage ongoing use of coping strategies for anxiety management ADHD Assessment: Patient reports worsening ADHD symptoms following hysterectomy and initiation of testosterone replacement therapy. Symptoms include increased forgetfulness and hyperfixation. These changes may be related to hormonal fluctuations affecting cognitive function. Plan: - Continue current ADHD management (specific medication not mentioned in transcript) - Monitor ADHD symptoms and their relationship to hormone replacement therapy - Consider ADHD medication adjustment at future visit if symptoms persist the note is transcribed using speech recognition software. It is a reflection of a visit with the patient. It might have some inaccuracy, including medication names and transcribing errors, though efforts have been made to correct them. 04/04/2025 Other Attention Deficit Hyperactivity Disorder (ADHD) - Assessment: Reji reports significant symptoms consistent with ADHD, including difficulty with focus, task completion, and time management. These symptoms appear to have worsened since starting testosterone therapy, suggesting a potential hormonal influence on ADHD presentation. 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 - Plan: - Recommend ADHD testing to confirm diagnosis and assess severity - Discuss potential medication options if diagnosis is confirmed - Explore and implement additional coping strategies for executive functioning difficulties - Follow up after testing to discuss results and treatment options Substance Use Disorder (in remission) - Assessment: Reji has a history of polysubstance abuse, including crack cocaine and alcohol. He reports being currently sober, with his last use of alcohol occurring on his past birthday (3 beers). Reji acknowledges that since restarting sertraline, he has experienced a significant reduction in cravings and thoughts about using substances. - Plan: - Continue current medication regimen (sertraline, dose not specified) - Encourage ongoing engagement in recovery-supportive activities - Monitor for any signs of relapse or increased cravings - Provide positive reinforcement for maintained sobriety Anxiety related to Political Climate - Assessment: Reji reports experiencing significant anxiety and paranoia related to the current political climate, particularly concerning potential threats to transgender rights. This anxiety has led to catastrophic thinking and preparation for worst-case scenarios. - Plan: - Implement cognitive-behaviora l techniques to manage catastrophic thinking - Teach grounding exercises for anxiety management - Encourage balanced media consumption to reduce exposure to anxiety-provoking content - Explore local LGBTQ+ support groups or resources for additional community support 04/05/2025 Other Rizwan Hairston, adult male with history of ADHD and substance use disorder, presents with worsening attention and concentration difficulties, impulsivity, and forgetfulness. Attention Deficit Hyperactivity Disorder (ADHD) Assessment: Patient reports a history of ADHD diagnosed in childhood and again during therapy in [place]. Symptoms have progressively worsened, possibly exacerbated by hormonal changes. Current symptoms include difficulty concentrating, impulsivity, impatience, frequent misplacement of items, and accident-proneness. Patient describes significant impact on daily functioning, including work performance and home life. Family history of ADHD, particularly on paternal side, is noted. Previous treatment with Ritalin, though efficacy is unclear. Recent cessation of substance use may have unmasked ADHD symptoms that were previously self-medicated with stimulants. Hormone therapy (testosterone) may also be contributing to symptom exacerbation. Formal ADHD testing is warranted to confirm diagnosis and guide treatment. Plan: - Administer formal ADHD assessment test - Discuss potential treatment options pending test results, including medication management and behavioral strategies - Evaluate interaction between hormone therapy and ADHD symptoms - Provide education on ADHD management techniques, such as using notebooks and schedules for organization Substance Use Disorder (in remission) Assessment: Patient reports history of cocaine and crack use but is currently substance-free. Current medication regimen has effectively reduced cravings and urges to use, which patient appreciates. This abstinence may have unmasked previously self-medicated ADHD symptoms. Plan: - Monitor for any signs of relapse or increased cravings - Encourage continued engagement in recovery support systems the note is transcribed using speech recognition software. It is a reflection of a visit with the patient. It might have some inaccuracy, including medication names and transcribing errors, though efforts have been made to correct them. 04/21/2025 Other Reymondo Mongvi, adult male with history of ADHD, depression, and anxiety, presenting for follow-up after recent ADHD testing and medication management. Attention Deficit Hyperactivity Disorder (ADHD) Assessment: Patient underwent ADHD testing on April 07, 2025. Cognitive assessment results indicate deficits in planning, attention, response, and evasion, consistent with ADHD diagnosis. Patient reports history of taking Ritalin in the past but does not recall its effectiveness. Currently experiences symptoms such as pacing around the house or at work when not medicated, suggesting ongoing ADHD symptoms affecting daily functioning. Plan: - Initiate Concerta 27 mg PO daily in the morning - Explained extended-release formulation, expected 12-hour coverage - Informed patient about potential side effects: initial adjustment period, possible sleep disturbances, decreased appetite - Advised that therapeutic effect should be noticeable without feeling overstimulated - Discussed expected benefits: reduced anxiety, improved focus, task completion, and listening skills - Dispense 2-week supply of Concerta - Patient to report back after 2 weeks to assess medication efficacy and tolerability - Provide copy of ADHD testing report to patient - Follow-up appointment scheduled in 1 month Anxiety Assessment: Patient reports overall improvement in anxiety symptoms with current medication regimen. However, experiences occasional acute anxiety episodes in public settings, describing feeling like they're going to shake right out of my body upon returning home. Plan: - Continue current anxiety medication (specific medication not mentioned) - Monitor for changes in anxiety symptoms, particularly with initiation of ADHD medication Depression Assessment: Patient reports doing pretty good in terms of depression management. Currently taking sertraline, which patient notes causes decreased appetite. Plan: - Continue sertraline (dose not specified) - Monitor for ongoing efficacy and side effects, particularly decreased appetite the note is transcribed using speech recognition software. It is a reflection of a visit with the patient. It might have some inaccuracy, including medication names and transcribing errors, though efforts have been made to correct them. 05/26/2025 Other Substance Use Disorder (JEIMY) - Crack Cocaine, in remission - Assessment: Reji reports a 20-year history of crack cocaine use, with the most severe period from 2018 to 2020. He is currently in recovery. Substance use began at age 10 with marijuana and cigarettes, progressing to alcohol and crack cocaine at age 17. His history of alcohol and cocaine exposure, and learning disabilities may have contributed to his vulnerability to substance use disorders. - Plan: - Continue to monitor for signs of relapse or cravings. - Encourage ongoing participation in recovery support programs. - Assess need for additional substance abuse counseling or support groups. 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 He reports a history of growing up in the system. - Plan: - Explore coping strategies for managing multiple responsibilities and life changes. - Assess impact of childhood experiences on current relationships and parenting. - Monitor for signs of increased stress or potential relapse triggers. Each section addresses Reji's specific concerns and outlines corresponding plans for treatment and support. 05/26/2025 Ehsan Hairston presents with anxiety and is currently on sertraline and lorazepam, reporting overall improvement in mood and anxiety symptoms with current medication regimen. Anxiety Disorder Assessment: Patient reports overall improvement in anxiety symptoms . He experienced initial anxiety when transitioning to the new dose but has since stabilized. Patient now uses lorazepam only for specific social situations rather than regularly. There are occasional peaks in anxiety, possibly related to current sertraline dosage. Patient's insurance situation may impact medication access in the near future. Plan: - Continue sertraline mg daily - Continue lorazepam as needed for situational anxiety - Refill medications today - Follow-up appointment in 3 months - Monitor for need to adjust sertraline dosage if anxiety symptoms persist or worsen the note is transcribed using speech recognition software. It is a reflection of a visit with the patient. It might have some inaccuracy, including medication names and transcribing errors, though efforts have been made to correct them. Plan Of Treatment Next Appt Details Provider Name:Latonia Restrepo, 06/09/2025 03:00:00 PM, [address], [address], [place], [address], Provider Name:Latonia Restrepo, 06/23/2025 03:00:00 PM, [address], [address], [place], [address], Provider Name:Latonia Restrepo, 07/07/2025 03:00:00 PM, [address], [address], [place], [address], Provider Name:Latonia Restrepo, 07/21/2025 03:00:00 PM, [address], [address], [place], [address], Provider Name:Aristides chino, 08/17/2025 04:15:00 PM, [address], [address], [place], [address], Insurance Providers Payer Name Payer Address Payer Phone Subscriber Number Group Number Insured Name Patient Relationship to Insured Coverage Start Date Coverage End Date [facility] [address] [address] [place] [phone] [id number] MARIKA Ericangela Self - patient is the insured Medical (General) History Medical History History ICD Code Problems: Adjustment disorder with mixed anxiety and depressed mood Chronic post-traumatic stress disorder Generalized anxiety disorder Nondependent alcohol abuse in remission Transgender identity Trying to give up smoking , Past Psychiatric History: Anxiety Disord er,Panic Disorder,PTSD abdominal aortic aneurysm: No atrial fibrillation: No chronic fatigue syndrome: No essential tremor: No hyperlipidemia: No hypertension: No Parkinson's disease: No restless leg syndrome: No stroke: No subdural hematoma: No type 1 diabetes mellitus: No type 2 diabetes mellitus: No vitamin B12 deficiency: No vitamin D deficiency: No Past Psychiatric History: PTSD undefined Surgical History Surgery Date(Month/Year) Unlisted procedure shoulder (01846) righ t Hysterectomy (77846) 07/29/2022 Other 08/15/2008
--- OUTSIDE RECORDS SUMMARY | 2025-05-31 11:21 | XMS_ITS | Data Portability ---
Author Organization [place] [facility], Main Office Address [address] [place] [address] Assessment No assessment recorded. Plan of Treatment Reminders Order Date Submit Date Provider Last Modified By Organization Details Last Modified Time Details Appointments None recorded. Lab CMP, serum or plasma 2023 [employer] [facility], [address], [address], 08:25:08 CBC w/ auto diff 2023 024 [employer] [facility], [facility] [address], [address], 4 08:25:08 lipid panel, serum 2023 024 [employer] [facility], [facility] [address], [address], 4 08:25:08 HbA1c (hemoglobin A1c), blood 2023 024 [employer] [facility], [address], [address], 4 08:25:09 TSH, serum or plasma 2023 024 [employer] [facility], [address], [address], 4 08:25:[address] referral - Please call patient to schedule an appointment . Thank you. 2023 [email or web address] Kizzy Marie MD (Dermatology) , [address], [place] [address], [place], [address], 08:44:49 Procedures None recorded. Surgeries None recorded. Imaging XR, chest, 2 view [email or web address] [place] [address] Center, [address], [place], [address], 5 10:17:04 XR, chest, 2 view 2023 [email or web address] [id number] [facility] (Imaging), [address] [place], [address], 09:47:14 Medication Orders cetirizine 10 mg tablet 2023 [id number], [address], [place], [id number], 4 16:31:16 Airsupra 90 mcg-80 mcg/actuati on HFA aerosol inhaler 2023 [email or web address], [address] [facility], [place], [place], [id number], 4 16:31:16 albuterol sulfate 2.5 mg/3 mL (0.083 %) solution for nebulizatio n 2023 [email or web address], [address], [place], [id number], 16:31:17 Patient TargetsNo targets recorded. Patient InstructionsNo instructions recorded. Reason for Referral [employer] Referral for M elanocytic nevus of skin Please call patient to schedule an appointment. Thank you. Referring Physician: Yoko Longo, Family Medicine, Encounter Date: 09/17/2024 Results Created Date Observation Date Name Description Value Unit Range Abnormal Flag Note LastModifiedBy Organization Detail LastModifiedTime 04/01/20 22 04/04/2022 HCV/H EPATI TIS C RT-PC R, QUANT hepatitis C quantitation commen t IU/mL HCV Not Detec ronnie Not Available [facility] (Lab) [address] [place], [address], 04/04/2022 22:07:19 04/01/20 22 04/04/2022 HCV/H EPATI TIS C RT-PC R, QUANT test information: commen t . The quant itati ve range of this assay is 15 IU/mL to 100 anastasia on IU/mL . Perfo rmed at: [facility] [place] [address] [facility] [place] [address] Lab Direc tor: Michelle donald MD, Phone : [phone] Not Available [facility] (Lab) [address] [place], [address], 04/04/2022 22:07:19 04/01/20 22 04/01/2022 HEPAT ITIS C/HCV ANTIB BE hepatitis C antibody reacti ve non-re active abnormal SPECI MEN SENT TO REFER ENCE LAB FOR CONFI RMATO RY TESTI NG sent out a hepcp cr /js/1 94/ Not Available [facility] (Lab) [address] [place], [address], 04/01/2022 20:40:29 04/01/20 22 04/01/2022 HEPAT ITIS C/HCV ANTIB BE S/C 1.58 0.00-0 .99 abnormal Not Available [facility] (Lab) [address] [place], [address], 04/01/2022 20:40:29 04/01/20 22 04/01/2022 HEMOG LOBIN A1C HA1C 5.0 % 4.0-6. 0 Diabe chet Scree chino Crite marcelina: <5.7% Consi stent with absen ce of diabe chet 5.7-6 .4% Consi stent with incre ased risk for diabe chet (pred iabet es) >OR=6 .5% Consi stent with diabe chet REFER ENCE: Diabe chet Care 2016, 39(Mcgovern ppl.1 ):s13 -s22 Not Available [facility] (Lab) [address] [place], [address], 04/01/2022 20:07:57 04/01/20 22 04/01/2022 HIV COMBO : HIV 1/2,P 24AG, GRP O HIV combo assay non-re active nonrea ctive The HIV combo test scree ns for HIV-1 , HIV-2 , HIV p24 Ag, and HIV group O. Any react kodak scree n resul t will be sent for PCR confi rmato ry testi ng. Not Available [facility] (Lab) [address] [place], [address], 04/01/2022 17:50:57 04/01/20 22 04/01/2022 HIV COMBO : HIV 1/2,P 24AG, GRP O S/C 0.10 0.00-0 .99 Not Available [facility] (Lab) [address] [place], [address], 04/01/2022 17:50:57 04/01/20 22 04/01/2022 TSH W/REF PRETTY FT4 TSH with reflex free T4 1.090 uIU/m L 0.465- 4.680 Not Available [facility] (Lab) [address] [place], [address], 04/01/2022 17:41:32 04/01/20 22 04/01/2022 LIPID PANEL cholesterol 160 mg/dL 140-19 9 NIH BETSEY NSUS RECOM MENDA TION FOR GRACIE STERO L: ADULT CHILD LOW RISK: <200 <170 BORDE RLINE : <200- 239 ----- HIGH RISK: >240 >200 Not Available [facility] (Lab) [address] [place], [address], 04/01/2022 17:13:40 04/01/20 22 04/01/2022 LIPID PANEL triglyceride s 78 mg/dL 0-150 NIH BETSEY NSUS REPOR T RECOM MENDA TION FOR TRIGL YCERI LUIS: ADULT CHILD LOW RISK: <150 ----- BODER LINE: 150-1 99 ----- HIGH RISK: >200 ----- Not Available [facility] (Lab) [address] [place], [address], 04/01/2022 17:13:40 04/01/20 22 04/01/2022 LIPID PANEL HDL cholesterol 41 mg/dL 40- Not Available [facility] (Lab) [address] [place], [address], 04/01/2022 17:13:40 04/01/20 22 04/01/2022 LIPID PANEL LDL cholesterol, calculated 103 mg/dL 0-130 NIH BETSEY NSUS REPOR T RECOM MENDA TIONS FOR LDL: ADULT CHILD LOW RISK <130 <110 (OPTI MAL LDL) <100 ----- DANNADE RLINE : 130-1 59 ----- HIGH RISK: >160 >130 A TRIGL YCERI DE RESUL T >400 INVAL IDATE S THE CALCU LATIO N FOR LDL FRACT IONAT ION - THE LDL RESUL T WILL NOT BE REPOR RONNIE. Not Available [facility] (Lab) [address] [place], [address], 04/01/2022 17:13:40 04/01/20 22 04/01/2022 COMPR EHENS KODAK METAB OLIC PANEL sodium 136 mmol/ L 137-14 5 low Not Available [facility] (Lab) [address] [place], [address], 04/01/2022 17:13:35 04/01/20 22 04/01/2022 COMPR EHENS KODAK METAB OLIC PANEL potassium 4.7 mmol/ L 3.5-5. 1 Not Available [facility] (Lab) [address] [place], [address], 04/01/2022 17:13:35 04/01/20 22 04/01/2022 COMPR EHENS KODAK METAB OLIC PANEL chloride 108 mmol/ L 98-107 high Not Available [facility] (Lab) [address] [facility] [place], [address], 04/01/2022 17:13:35 04/01/20 22 04/01/2022 COMPR EHENS KODAK METAB OLIC PANEL carbon dioxide 21 mmol/ L 22-30 low Not Available [facility] (Lab) [address] [place], [address], 04/01/2022 17:13:35 04/01/20 22 04/01/2022 COMPR EHENS KODAK METAB OLIC PANEL anion gap 11.7 mmol/ L 14-22 low Not Available [facility] (Lab) [address] [place], [address], 04/01/2022 17:13:35 04/01/20 22 04/01/2022 COMPR EHENS KODAK METAB OLIC PANEL glucose 97 mg/dL 70-99 Not Available [facility] (Lab) [address] [place], [address], 04/01/2022 17:13:35 04/01/20 22 04/01/2022 COMPR EHENS KODAK METAB OLIC PANEL BUN 15 mg/dL 8-19 Not Available [facility] (Lab) [address] [place], [address], 04/01/2022 17:13:35 04/01/20 22 04/01/2022 COMPR EHENS KODAK METAB OLIC PANEL creatinine 1.04 mg/dL 0.66-1 .25 Not Available [facility] (Lab) [address] [place], [address], 04/01/2022 17:13:35 04/01/20 22 04/01/2022 COMPR EHENS KODAK METAB OLIC PANEL GFR >60 Refer ence Range : [place] ge GFR Healt hy Adult : >60 mL/mi n/1.7 3 m2 Chron ic Kidne y Disea se: 15-60 mL/mi n/1.7 3 m2 Kidne y Failu re: <15/m L/min /1.73 m2 www.n iddk. nih.g ov The MDRD study equat ion has not been valid ated in child desire <18 years of age; pregn ant women ; the elder ly >85 years of age; or in some racia l or ethni c subgr oups, such as Hispa nics. Outsi de the valid ated martin eters , estim ated GFR is less accur ate, requi ring clini natividad judgm ent on a case- by-ca se basis . Clini natividad inter preta tion for other races and ages must be made by the clini reyna. The MDRD study equat ion has not been valid ated for the evalu ation of serum creat inine relat ed to nutri chris l statu s or medic ation usage . For perso ns <18 years of age, a pedia tric GFR calcu lator is avail able on the [facility] websi te: https :[email or web address] roy.angela elizabeth/jhoana yost s/hannao qi/gf r_cal culat or Not Available [facility] (Lab) [address] [place], [address], 04/01/2022 17:13:35 04/01/20 22 04/01/2022 COMPR EHENS KODAK METAB OLIC PANEL alkaline phosphatase 63 U/L 38-126 Not Available [facility] (Lab) [address] [place], [address], 04/01/2022 17:13:35 04/01/20 22 04/01/2022 COMPR EHENS KODAK METAB OLIC PANEL alanine aminotransfe rase 22 U/L 0-50 Not Available [facility] (Lab) [address] [place], [address], 04/01/2022 17:13:35 04/01/20 22 04/01/2022 COMPR EHENS KODAK METAB OLIC PANEL aspartate aminotransfe rase 33 U/L 15-46 Not Available [facility] (Lab) [address] [place], [address], 04/01/2022 17:13:35 04/01/20 22 04/01/2022 COMPR EHENS KODAK METAB OLIC PANEL bilirubin, total 0.80 mg/dL 0.20-1 .30 Not Available [facility] (Lab) [address] [place], [address], 04/01/2022 17:13:35 04/01/20 22 04/01/2022 COMPR EHENS KODAK METAB OLIC PANEL calcium 9.4 mg/dL 8.4-10 .2 Not Available [facility] (Lab) [address] [place], [address], 04/01/2022 17:13:35 04/01/20 22 04/01/2022 COMPR EHENS KODAK METAB OLIC PANEL total protein 7.2 g/dL 6.3-8. 2 Not Available [facility] (Lab) [address] [place], [address], 04/01/2022 17:13:35 04/01/20 22 04/01/2022 COMPR EHENS KODAK METAB OLIC PANEL albumin 4.4 g/dL 3.4-5. 0 Not Available [facility] (Lab) [address] [place], [address], 04/01/2022 17:13:35 04/01/20 22 04/01/2022 COMPR EHENS KODAK METAB OLIC PANEL globulin 2.8 g/dL 2.6-4. 2 Not Available [facility] (Lab) [address] [place], [address], 04/01/2022 17:13:35 04/01/20 22 04/01/2022 COMPR EHENS KODAK METAB OLIC PANEL A/G ratio 1.6 ratio 1.0-2. 0 Not Available [facility] (Lab) [address] [place], [address], 04/01/2022 17:13:35 04/01/20 22 04/01/2022 CBC/C OMPLE TE BLD COUNT W/DIF F white blood cells 7.4 x10'3 /uL 4.2-10 .8 Not Available [facility] (Lab) [address] [place], [address], 04/01/2022 16:56:46 04/01/20 22 04/01/2022 CBC/C OMPLE TE BLD COUNT W/DIF F red blood cells 5.02 x10'6 /uL 4.10-5 .80 Not Available [facility] (Lab) [address] [place], [address], 04/01/2022 16:56:46 04/01/20 22 04/01/2022 CBC/C OMPLE TE BLD COUNT W/DIF F hemoglobin 16.1 g/dL 13.2-1 7.0 Not Available [facility] (Lab) [address] [place], [address], 04/01/2022 16:56:46 04/01/20 22 04/01/2022 CBC/C OMPLE TE BLD COUNT W/DIF F hematocrit 47.9 % 39.3-5 0.0 Not Available [facility] (Lab) [address] [place], [address], 04/01/2022 16:56:46 04/01/20 22 04/01/2022 CBC/C OMPLE TE BLD COUNT W/DIF F mean red cell volume 95.4 fL 80.0-9 7.0 Not Available [facility] (Lab) [address] [place], [address], 04/01/2022 16:56:46 04/01/20 22 04/01/2022 CBC/C OMPLE TE BLD COUNT W/DIF F mean red cell hemoglobin 32.1 pg 27.0-3 3.0 Not Available [facility] (Lab) [address] [place], [address], 04/01/2022 16:56:46 04/01/20 22 04/01/2022 CBC/C OMPLE TE BLD COUNT W/DIF F mean RBC HGB concentratio n 33.6 g/dL 31.0-3 6.0 Not Available [facility] (Lab) [address] [place], [address], 04/01/2022 16:56:46 04/01/20 22 04/01/2022 CBC/C OMPLE TE BLD COUNT W/DIF F red cell distribution width 12.8 % 11.8-1 5.5 Not Available [facility] (Lab) [address] [place], [address], 04/01/2022 16:56:46 04/01/20 22 04/01/2022 CBC/C OMPLE TE BLD COUNT W/DIF F platelets 236 x10'3 /uL 150-40 0 Not Available [facility] (Lab) [address] [place], [address], 04/01/2022 16:56:46 04/01/20 22 04/01/2022 CBC/C OMPLE TE BLD COUNT W/DIF F mean platelet volume 10.9 fL 9.0-12 .4 Not Available [facility] (Lab) [address] [place], [address], 04/01/2022 16:56:46 04/01/20 22 04/01/2022 CBC/C OMPLE TE BLD COUNT W/DIF F neutrophils 64.4 % 39.0-7 2.0 Not Available [facility] (Lab) [address] [place], [address], 04/01/2022 16:56:46 04/01/20 22 04/01/2022 CBC/C OMPLE TE BLD COUNT W/DIF F lymphocytes 20.9 % 16.0-4 7.0 Not Available [facility] (Lab) [address] [place], [address], 04/01/2022 16:56:46 04/01/20 22 04/01/2022 CBC/C OMPLE TE BLD COUNT W/DIF F monocytes 8.5 % 5.0-12 .0 Not Available [facility] (Lab) [address] [place], [address], 04/01/2022 16:56:46 04/01/20 22 04/01/2022 CBC/C OMPLE TE BLD COUNT W/DIF F eosinophils 4.6 % 1.0-7. 0 Not Available [facility] (Lab) [address] [place], [address], 04/01/2022 16:56:46 04/01/20 22 04/01/2022 CBC/C OMPLE TE BLD COUNT W/DIF F basophils 0.8 % 0.0-2. 0 Not Available [facility] (Lab) [address] [place], [address], 04/01/2022 16:56:46 04/01/20 22 04/01/2022 CBC/C OMPLE TE BLD COUNT W/DIF F immature granulocytes 0.8 % 0.00-0 .50 high Not Available [facility] (Lab) [address] [place], [address], 04/01/2022 16:56:46 04/01/20 22 04/01/2022 CBC/C OMPLE TE BLD COUNT W/DIF F neutrophils, absolute count 4.74 x10'3 /uL 1.5-8. 0 Not Available [facility] (Lab) [address] [place], [address], 04/01/2022 16:56:46 04/01/20 22 04/01/2022 CBC/C OMPLE TE BLD COUNT W/DIF F lymphocytes, absolute count 1.54 x10'3 /uL 1.07-3 .43 Not Available [facility] (Lab) [address] [place], [address], 04/01/2022 16:56:46 04/01/20 22 04/01/2022 CBC/C OMPLE TE BLD COUNT W/DIF F monocytes, absolute count 0.63 x10'3 /uL 0.29-0 .99 Not Available [facility] (Lab) [address] [place], [address], 04/01/2022 16:56:46 04/01/20 22 04/01/2022 CBC/C OMPLE TE BLD COUNT W/DIF F eosinophils, absolute count 0.34 x10'3 /uL 0.02-0 .53 Not Available [facility] (Lab) [address] [place], [address], 04/01/2022 16:56:46 04/01/20 22 04/01/2022 CBC/C OMPLE TE BLD COUNT W/DIF F basophils, absolute count 0.06 x10'3 /uL 0.01-0 .08 Not Available [facility] (Lab) [address] [place], [address], 04/01/2022 16:56:46 04/01/20 22 04/01/2022 CBC/C OMPLE TE BLD COUNT W/DIF F immature granulocytes ,absolute 0.06 x10'3 /uL 0.00-0 .05 high Not Available [facility] (Lab) [address] [place], [address], 04/01/2022 16:56:46 04/01/20 22 04/01/2022 CBC/C OMPLE TE BLD COUNT W/DIF F nucleated red blood cells 0.0 % -0 Not Available [facility] (Lab) [address] [place], [address], 04/01/2022 16:56:46 04/01/20 22 04/01/2022 CBC/C OMPLE TE BLD COUNT W/DIF F NRBC# 0.00 x10'3 /uL Not Available [facility] (Lab) [address] [facility] [place], [address], 04/01/2022 16:56:46 02/06/20 23 02/04/2023 MAMMO , scree chino, bilat eral No observ ation record ed. [email or web address] [facility] [address] [place] [address], [address], 02/05/2023 20:45:55 Result Notes None recorded. Problems Name Problem SNOMED Code Status Onset Date Resolution Date Notes Provider Name and Address Organization Details Recorded Time Tobacco user 892247238 Active 2021 Not Available [facility] 01:[facility]12 Transgende r identity [id number] 9109 Active 2021 Not Available [facility] 3 01:00:12 Asthma 259018035 Active 2021 Not Available [facility] 3 01:00:12 Attention deficit hyperactiv ity disorder, combined type 34988487 Active 2021 Not Available [facility] 3 01:00:12 Hepatitis C antibody detected 505390029 Active 2021 Not Available [facility] 3 01:00:12 History of recreation al drug use 479835622 Active 2021 Not Available [facility] 3 01:00:12 Genital herpes simplex type 2 599132337 Active 2021 Not Available [facility] 3 01:00:13 Posttrauma tic stress disorder 66750685 Active 2021 Not Available [facility] 3 01:00:13 Anxiety 01668398 Active 2021 Not Available [facility] 3 01:00:13 Acid reflux 919737648 Active 2021 Not Available [facility] 3 01:00:13 Seasonal allergic rhinitis 948851759 Active 2023 GIO Alvares [address], [place], [address] , [facility] 4 16:22:46 Melanocyti c nevus of skin 678382831 Active 2023 GIO Alvares [address], [place], [address] , [facility] 4 16:32:09 Smoker 08956830 Active 2023 GIO Alvares [address], [place], [address] , [facility] 4 16:42:40 Nicotine dependence 08234347 Active 2024 GIO Alvares [address], [address], [place], [address] , [facility] 5 16:47:26 Gastroesop hageal reflux disease without esophagiti s 577132151 Active 2024 GIO Alvares [address], [place], [address] , [facility] 5 16:51:35 Problem Notes None recorded. Procedures Surgical History Date Name Laterality Status Provider Name and Address Organization Details Recorded Time 09/17/20 24 Cerumen Removal completed GIO Alvares [address], [place], [address], [facility] 09/17/2024 17:15:04 04/15/20 23 Mastectomy for gynecomastia completed Lynne Rogers NP [address], [place], [address], [facility] 04/17/2023 09:07:55 Imaging Results None recorded. Procedure Notes None recorded. Medical Equipment None Reported. Allergies Allergen ID Allergen Name Allergen Category Reaction Reaction Severity Criticality Documentation Date Start Date Code Code System Note Provider Name and Address Organization Details Recorded Time 40147 Product containin g penicilli n (product) medicatio n rash severe Not available 01/30/2023 71020 8001 SNOMED Not Available [facility] 01:01:07 Medications Name Sig Start Date Stop Date Status Note LastModified by Organization Details LastModified Time methocarbam ol 500 mg tablet TAKE 1 TABLET BY MOUTH FOUR TIMES DAILY NEEDED FOR SPASM 03/29 completed Not Available Not Available Not Available albuterol sulfate 2.5 mg/3 mL (0.083 %) solution for nebulizatio n Inhale 3 mL 3 times a day by nebulizat ion route as needed for 30 days. active Not Available Not Available No t Available cetirizine 10 mg tablet TAKE 1 TABLET BY MOUTH DAILY active Not Available Not Available No t Available ibuprofen 800 mg tablet TAKE 1 TABLET BY MOUTH EVERY 8 HOURS NEEDED FOR PAIN active Not Available Not Available No t Available BD Luer-Rj Syringe 3 mL 20 gauge x 1 06/26 completed Not Available Not Available Not Available sertraline 100 mg tablet TAKE 1 TABLET BY MOUTH DAILY active Not Available Not Available No t Available valacyclovi r 500 mg tablet TAKE 1 TABLET BY MOUTH EVERY DAY active Not Available Not Available No t Available [employer] 23 gauge x 1 USE WITH INJECTION OF TESTOSTER ONE 06/26 completed Not Available Not Available Not Available famotidine 20 mg tablet Take 1 tablet twice a day by oral route. 09/17 completed Not Available Not Available Not Available lorazepam 0.5 mg tablet TAKE 1 TABLET BY MOUTH DAILY FOR 14 DAYS NEEDED active Not Available Not Available No t Available testosteron e cypionate 200 mg/mL intramuscul ar oil ADMINISTE R 0.5 ML IN THE MUSCLE EVERY 7 DAYS active Not Available Not Available No t Available fluticasone propionate 50 mcg/actuati on nasal spray,suspe nsion [place] 1 spray every day by intranasa l route. 09/17 completed Not Available Not Available Not Available sertraline 50 mg tablet TAKE 1 TABLET BY MOUTH DAILY 03/29 completed Not Available Not Available Not Available doxycycline hyclate 100 mg tablet Take 1 tablet twice a day by oral route. active Not Available Not Available No t Available testosteron e 2021 active Not Available Not Available Not Avai lable Qvar RediHaler 80 mcg/actuati on HFA breath activated aerosol Inhale 2 puffs twice a day by inhalatio n route. 09/17 completed Not Available Not Available Not Available albuterol sulf 90 mcg/actuati on breath activated powder inhaler,sen sor Inhale 2 puffs every 4 hours by inhalatio n route. 2021 active Not Available Not Available Not Avai lable Airsupra 90 mcg-80 mcg/actuati on HFA aerosol inhaler INHALE 2 PUFFS BY MOUTH THREE TIMES DAILY NEEDED active Not Available Not Available No t Available Vitals Date Recorded Body height Body mass index (BMI) Body weight Body temperature Heart rate Respiratory rate Oxygen saturation Oxygen saturation in Arterial blood by Pulse oximetry Systolic blood pressure Diastolic blood pressure Provider Name and Address Organization Details Last Updated DateTime 5 160.02 cm 25.9 kg/m2 39278.5 9 g 97.2 [degF] 73 /min 20 /min 97 % 97 % 128 mm[Hg] 70 mm[Hg] Lynne Baig RN [place] - [place] [employer] 5 16:40:01 Date Recorded Body mass index (BMI) Body height Oxygen saturation Oxygen saturation in Arterial blood by Pulse oximetry Heart rate Body temperature Body weight Systolic blood pressure Diastolic blood pressure Provider Name and Address Organization Details Last Updated DateTime 2 25.9 kg/m2 160.02 cm 97 % 97 % 60 /min 97.9 [degF] 71412.4 9 g 110 mm[Hg] 74 mm[Hg] Not Available [facility] 3 00:59:47 Date Recorded Body mass index (BMI) Body height Oxygen saturation Oxygen saturation in Arterial blood by Pulse oximetry Heart rate Respiratory rate Body temperature Body weight Systolic blood pressure Diastolic blood pressure Provider Name and Address Organization Details Last Updated DateTime 2 25 kg/m2 160.02 cm 98 % 98 % 69 /min 16 /min 97.8 [degF] 86212.5 2 g 106 mm[Hg] 70 mm[Hg] Not Available [facility] 3 00:59:47 Date Recorded Body weight Body mass index (BMI) Body height Body temperature Heart rate Respiratory rate Oxygen saturation Oxygen saturation in Arterial blood by Pulse oximetry Systolic blood pressure Diastolic blood pressure Provider Name and Address Organization Details Last Updated DateTime 4 27120.7 5 g 25.6 kg/m2 160.02 cm 97.7 [degF] 77 /min 20 /min 97 % 97 % 128 mm[Hg] 80 mm[Hg] Lynne Baig RN [place] - [facility] [place] [employer] 4 16:08:39 Social History Question Answer Notes LastModified by Organizat ion Details LastModified Time Tobacco Smoking Status Current Every Day Smoker Not Available [facility] 01/30/2023 00:58:48 Do You Have An Advance Directive? No [id number] Information not available 01/30/2023 Do You Wear A Helmet When Biking? No [id number] Information not available 01/30/2023 What Is Your Level Of Caffeine Consumption? Occasional [id number] Information not available 01/30/2023 In The 14 Days Before Symptom Onset, Have You Had Close Contact With A Laboratory-confir med COVID-19 While That Case Was Ill? No [id number] Information not available 01/30/2023 In The 14 Days Before Symptom Onset, Have You Had Close Contact With A Person Who Is Under Investigation For COVID-19 While That Person Was Ill? No [id number] Information not available 01/30/2023 What Type Of Diet Are You Following? REGULAR [id number] Information not available 01/30/2023 Have There Been Any Changes To Your Family Or Social Situation? Yes [id number] Information not available 01/30/2023 What Is The Fluoride Status Of Your Home? Unknown [id number] Information not available 01/30/2023 Are There Any Guns Present In Your Home? No [id number] Information not available 01/30/2023 Do You Use Insect Repellent Routinely? Yes [id number] Information not available 01/30/2023 Where Do You Live? Apartment [id number] Information not available 01/30/2023 Do You Have A Medical Power Of [employer] Software Engineer? No [id number] 0507 Information not available 01/30/2023 How Many Children Do You Have? 0 Information not available 09/17/2024 Do You Have Any Pets? Yes [id number] Information not available 01/30/2023 What Is Your Relationship Status? [id number] Information not available 01/30/2023 Do You Use Your Seat Belt Or Car Seat Routinely? Yes [id number] Information not available 01/30/2023 Do You Have Smoke And Carbon Monoxide Detectors In Your Home? Yes [id number] Information not available 01/30/2023 At What Age Did You Start Smoking Tobacco? 10 [id number] Information not available 01/30/2023 Are You Passively Exposed To Smoke? No [id number] Information not available 01/30/2023 Are There Any Smokers In Your House? No [id number] Information not available 01/30/2023 How Much Tobacco Do You Smoke? 0.5 PPD [id number] Information not available 01/30/2023 Do You Participate In Social Media? Yes [id number] Information not available 01/30/2023 Do You Use Sunscreen Routinely? Yes [id number] Information not available 01/30/2023 Has Tobacco Cessation Counseling Been Provided? No [id number] Information not available 01/30/2023 Have You Recently Traveled Abroad? No [id number] Information not available 01/30/2023 Are You Currently In School? No [id number] Information not available 01/30/2023 Do You Have Any Dietary Restrictions? No [id number] Information not available 01/30/2023 Sex: Female Functional Status Question Answer Note LastModified by Organizat ion Details LastModified Time Do you use any illicit or recreational drugs? No Currentlyover 1 year sober alcohol Information not available 03/29/2025 What is your level of alcohol consumption? None [id number] Information not available 01/30/2023 Are you currently employed? Yes Information not available 03/29/2025 What is your occupation? [employer] Information not available 03/29/2025 Mental Status Question Answer Note LastModified by Organizat ion Details LastModified Time Do you feel stressed (tense, restless, nervous, or anxious, or unable to sleep at night)? [id number] Information not available 01/30/2023 Family History Relationship Description Onset Age of this Age Resolved Age Notes LastModified by Organization Details LastModified Time Brother Autistic disorder [id number] Not available 01/30/2023 00:59:13 Medical History Condition Response BLINDNESS N RHEUMATIC FEVER N KIDNEY STONES N BLADDER PROBLEMS N MRSA N OTHER # 1 N POLIO N LUNG DISEASE/DISORDER N HISTORY OF DRUG ABUSE N RADIATION / CHEMOTHERAPY N COPD N Other # 2 N BLOOD DISEASES N SURGERY N EAR OR HEARING PROBLEMS N MUMPS N SHINGLES N BOWEL PROBLEMS N FEMALE PROBLEMS / INFECTIONS N DEPRESSION (INCLUDING POST ) N STROKE/TIA N THYROID DISEASE N ULCERS N BENIGN PROSTATIC HYPERPLASIA N MEASLES N CERVICALGIA N HYPOTENSION N TB SKIN TEST N MYOCARDIAL INFARCTION N PARAPELGIA N OBESITY N GERD/NAUSEA Y ANEURYSM N URINARY/BLADDER/KIDNEY PROBLEMS N CORONARY ARTERY DISEASE (CAD) N MENIERE'S DISEASE N ADDICTION CONCERNS Y ENDOMETRIOSIS N USE OF BLOOD THINNERS N SKIN PROBLEMS N EMPHYSEMA N GASTROINTESTINAL DISORDER N MUSCLE,JOINT OR BONE PROBLEMS N GASTROINTESTINAL BLEEDING N BLOOD CLOTS N ASTHMA Y CATARACTS N ERECTILE DYSFUNCTION N GI PROBLEMS N CHF N Low Testosterone N NEUROPATHY N INFERTILITY N AIDS/HIV N FRACTURES N CHEMOTHERAPY / RADIATION N VISION/EYE PROBLEMS N LIVER DISEASE N MALE HYPOGONADISM N HYPERTENSION N TOURETTE'S N ANXIETY DISORDER N BLOOD TRANSFUSION N ANEMIA/BLOOD DISORDER N CHRONIC EAR INFECTIONS N BRONCHITIS N TUBERCULOSIS N GLAUCOMA N FOOT PROBLEM N DIVERTICULITIS N CHICKENPOX N SLEEP APNEA N ALLERGIES/HAYFEVER N INFECTIOUS DISEASE N HEART ARRHYTHMIA N PROSTATE N INSOMNIA N HIGH CHOLESTEROL / HYPERLIPIDEMIA N HYPERTHYROIDISM N EYE PROBLEMS N EATING DISORDER N EDEMA N CHRONIC PAIN SYNDROME N CONSTIPATION N CAROTID BLOCKAGE N BACK / NECK PROBLEMS N HAVE YOU BEEN HOSPITALIZED OR SEEN IN [facility] IN THE PAST YEAR ? N ATHEROSCLEROSIS N BREAST PROBLEMS N DIALYSIS N ECZEMA N FIBROMYALGIA N OSTEOPOROSIS N ARTHRITIS N NO SIGNIFICANT PAST MEDICAL HISTORY N APPENDICITIS N DIABETES, TYPE N BAD TEETH N HEARTBURN / REFLUX N ADD/ADHD Y AUTISM SPECTRUM DISORDER (ASD) N HEPATITIS / LIVER DISEASE N PULMONARY DISEASE N GOUT N SLEEP DISORDER N ALZHEIMER'S DISEASE N PAIN N HERPES N DEMENTIA N HEADACHES/MIGRAINES N SEIZURES/EPILEPSY N VASCULAR DISEASE N PACEMAKER N DIZZINESS N HEART DISEASE/HEART PROBLEMS N KIDNEY DISEASE N DEVELOPMENTAL OR BEHAVIORAL DISORDERS N MULTIPLE SCLEROSIS N SCARLET FEVER N MENTAL DISORDER/ILLNESS N CARDIAC ARRHYTHMIA N CANCER: SPECIFY N PNEUMONIA N ATRIAL FIBRILLATION N Gall Stones N PULMONARY EMBOLISM N AUTOIMMUNE DISEASE N Immunizations Vaccine Type Date Status Note Provider Nam e and Address Organization Details Recorded Time Influenza, split virus, trivalent, PF 09/17/2024 completed Yoko Longo, [facility] [address] [facility], [facility] [address], [address], [facility] [employer] 09/17/2024 17:13:05 Past Encounters Encounter ID Performer Location Encounter Start Date Encounter Closed Date Diagnosis/Indication Diagnosis SNOMED-CT Code Diagnosis ICD10 Code Diagnosis Note [id number] Parish Epperson MD [address] [address] 03/27/2022 00:00:00 03/27/2022 13:27:53 [id number] Parish Epperson MD [address] [address] 03/28/2022 00:00:00 03/28/2022 13:43:19 [id number] Parish Epperson MD [address] [address] 04/12/2022 00:00:00 04/24/2022 11:37:57 [id number] Lynne Rogers NP [address] [address] 06/26/2022 00:00:00 06/26/2022 10:53:40 [id number] Lynne Rogers NP [address] [address] 07/03/2022 00:00:00 07/03/2022 09:04:39 [id number] Parish Epperson MD [address] [address] 09/17/2024 15:49:39 09/17/2024 16:57:24 Adult health examination 028289592 Z00.00 Asthma 985859708 J45.90 9 Inadequate control with albuterol Seasonal a llergic rhinitis 670440216 J30.2 Melanocyti c nevus of skin 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.9 Administra tion of influenza vaccine 02663735 Z23 Smoker 97339477 F17.325 [id number] [facility] [address] [address] 03/29/2025 16:21:31 03/29/2025 16:51:02 Nicotine dependence 94746890 F17.200 Chest XR ordered Gastroesop hageal reflux disease without esophagitis 178375279 K21.9 Takes OTC omeprazole and famotidine PRNKnows dietary triggers History an d physical examination, pre-employment 963401804 Z02.1 Physical form completed and returned to pt Health Concerns Section Related Observation LastModified by Organization Detai ls LastModified Time None Recorded Concern Status LastModified by Organization Details LastModified Time None Recorded Advance Directives Directive N: Payers Insurance Date Sequence Insurance Name Policy Number Policy Manzo Covered Member ID Manzo Member ID Guarantor Name 10/05/2024 1 RODNEY [id number] Medardokaycestanley Mosley [id number] Rizwan Mosley 04/01/2025 1 UMR [id number] Lukas Mosley [id number] Rizwan Mosley Notes Date Note Type Note Provider Name and Address Organization Details Recorded Time 4 text/html Maurice Mosley is a 39 year old F-to-M patient here today to establish care He has a history of ADHD He has a histroy of asthma. Currently using albuterol inhaler TID and neb at night. This has been going on approx 1 month. states he is snoring and wheezing at night. History of acid reflux History of recreational drug use Concerns with a bump behind his each He is taking testosterone 0.4 ml weekly. [facility] He has a history of genital herpes, he utilizes valacyclovir 500 mg BID PRN. [facility] Flu shot: 4COVID vaccines: x3HPV [facility]: has had double mastectomyWWE: has had total hysterectomycolonoscopy not indicated GIO Alvares [address], [place], [address], [employer] [facility] [employer] 09/17/2024 17:15:29 5 text/html Reji Mosley is a 40 year old male patient here today for a work physical. He is overall healthy Does have concerns with occasional GERD, does take famotidine PRN Concerns for possible lung issues related to family hx and smoking history, would like chest XR GIO Alvares [address], [place], [address], [employer] [address] 03/29/2025 16:53:26
--- NOTE | 2025-05-31 11:48 | ED.GENADULT ---
HPI - General Adult General Chief complaint: Fall Stated complaint: Fell off of ladder-labored breathing, lightheaded History of Present Illness HPI narrative: Rizwan Mosley is a 40 y/o who presents with some muscle pain and some front lower right rib pain after falling from a ladder about 24 hours ago. He states that he was trimming a tree branch and the ladder started to fall so he threw the chain saw and fell tucked in a ball on to his lower back. Denied any pain yesterday after the incident and was able to get right up and start walking Denies hitting head / no LOC Denies neck pain He states today started to have some right lower rib pain but states he has broken ribs before and it doesn't feel that bad but wanted to get checked out He also complains of some mild lower back pain not midline rating at a 1/10 Denies any numbness/ tingling to extremities ambulatory without difficulty Related Data Home Medications ?Medication ?Instructions ?Recorded ?Confirmed ?Last Taken ?Type methylphenidate HCl 36 mg mg PO 05/31/25 Unknown History tablet,extended release 24 hr sertraline 100 mg tablet mg 05/31/25 Unknown History Allergies Allergy/AdvReac Type Severity Reaction Status Date / Time Penicillins Allergy Mild Hives Verified 05/31/25 11:12 turkey AdvReac Intermediate CONSTIPATED Verified 05/31/25 11:12 Review of Systems Review of Systems: All systems reviewed & are unremarkable except as noted in HPI and below PMFSH Past Medical History Medical History Patient denies medical problems Surgical History Surgical History H/O: hysterectomy Social History Social History Smoking packs per day: 1 Smoking cigarettes per day: 20.0 Exam Narrative: GENERAL: Well-appearing, well-nourished, and in no acute distress. HEAD: Normocephalic, atraumatic. EYES: PERRLA and EOMI. ENT: Nares clear, no rhinorrhea or epistaxis. Mucous membranes moist. Oropharynx without tonsillar hypertrophy exudate or other lesions. NECK: Supple. No adenopathy or masses. No carotid bruits or JVD CHEST: Clear to auscultation. No respiratory distress. No wheezes rales or rhonchi HEART: Regular rate and rhythm. No murmur heard. Normal peripheral pulses. ABDOMEN: Soft, nontender, nondistended, normal active bowel sounds. EXTREMITIES: Normal range of motion. No edema. SKIN: Warm, dry, no rash. NEURO: No focal deficits. Alert and oriented x3. PSYCH: Normal mood and affect. Course Course Level of Care: Express Care Visit Vital Signs Vital signs: Vital Signs Temperature 36.6 C 05/31/25 11:17 Pulse Rate 81 05/31/25 11:17 Respiratory Rate 18 05/31/25 11:17 Blood Pressure 106/70 05/31/25 11:17 Pulse Oximetry 99 05/31/25 11:17 Oxygen Delivery Room Air 05/31/25 11:17 Temperature 36.6 C 05/31/25 11:17 Pulse Rate 81 05/31/25 11:17 Respiratory Rate 18 05/31/25 11:17 Blood Pressure 106/70 05/31/25 11:17 Pulse Oximetry 99 05/31/25 11:17 Oxygen Delivery Room Air 05/31/25 11:17 Medical Decision Making MDM Narrative Medical decision making narrative: 40 y/o presents after a fall form a ladder, he isn't quite sure how far he fell he states he was on the second step of the ladder Fell on to mid lower back area denies hitting head / no LOC / ambulatory by self at scene on exam he is speaking in clear full sentences with unlabored RR / Sating 99% on RA / lung sounds clear No cervical / thoracic / Lumbar spinal tenderness with palpation No ecchymosis/ no obvious deformity / no swelling/ no erythema He points to right lower anterior rib pain that is reproducible with palpation Offered pain medication but he states his pain Rates pain at a 1/10 and declines needing anything Plan to check a Rib XR and Chest XR XR: Negative for any acute findings /no fractures / no pneumothorax Patient will be d/c home with DEGROOT therapy Continue tylenol / Motrin Strict ER precautions if he develops any worsening symptoms or develops SOB/ CP / vomiting/ neck pain / increased pain/ difficulty ambulating then to go to the ER. He verbalizes understanding and agrees with plan Medical Records Medical records reviewed: Yes I reviewed the external patient's medical records. Vital Signs Vital Signs: Vital Signs Temperature 36.6 C 05/31/25 11:17 Pulse Rate 81 05/31/25 11:17 Respiratory Rate 18 05/31/25 11:17 Blood Pressure 106/70 05/31/25 11:17 Pulse Oximetry 99 05/31/25 11:17 Oxygen Delivery Room Air 05/31/25 11:17 Temperature 36.6 C 05/31/25 11:17 Pulse Rate 81 05/31/25 11:17 Respiratory Rate 18 05/31/25 11:17 Blood Pressure 106/70 05/31/25 11:17 Pulse Oximetry 99 05/31/25 11:17 Oxygen Delivery Room Air 05/31/25 11:17 Vitals reviewed by me Imaging Data Radiologist's impression: Impressions Ribs w/Chest X-Ray 05/31/25 12:35 IMPRESSION: 1. No rib fracture or acute cardiopulmonary disease. Discharge Plan Discharge Clinical Impression: Fall, Right-sided chest wall pain Patient Disposition: Home Condition: Stable Instructions: Antibiotic Form Additional Instructions: Continue to take Tylenol and Motrin for pain Rest / Ice areas of pain Your symptoms should only improve IF you develop worsening pain / shortness of breath/ difficulty ambulating / numbness /tingling then you need to go to the ER for further evaluation. Patient Language: Mongolian Prescriptions: No Action sertraline 100 mg tablet methylphenidate HCl 36 mg tablet extended release 24hr PO Follow-up/Referrals: Lynne Rogers APRN [Primary Care Provider] - 3 Days Time of Disposition: 12:43
== END 2025-05-31 12:46 | disposition home or self-care (01) ==
PROVIDERS: Emergency Provider Nurse Practitioner Family; PCP Nurse Practitioner Family
DX: R07.89 Other chest pain (principal); W11.XXXA Fall on and from ladder, initial encounter; F17.210 Nicotine dependence, cigarettes, uncomplicated
CPT/HCPCS: 71101; 99213; G0463

== ENCOUNTER 2025-07-14 21:26 | Emergency (ER) | payer OTHER, SELFPAY ==
--- OUTSIDE RECORDS SUMMARY | 2025-07-14 21:28 | XMS_ITS | Patient Health Record ---
Author Organization [facility] Address [address] [facility] [address] [place] [address] Care Team Providers Care Personal Lines Advisor Name Role Phone Lynne Banuelos Primary Care Provider Mely Aristides Grady Unavailable [phone] Latonia Camarena Unavailable [phone] Facundo Glasgow Unavailable [phone] Allergies Allergen (clinical drug ingredient) Drug/Non Drug [...] Oxazepam (BZO) n 0 - 300 ng/ml 4-jcwrtmrhtc-5,3-ytndnawi-1,3-diphenylpyrrolidine (HOLLY P) n 0 - 300 ng/ml Methamphetamine (MET) n 0 - 1000 ng/ml Methylenedioxymethamphetamine (MDMA) n 0 - 500 ng/ml Morphine (MOP 300/GDP7053) n 0 - 300 ng/ml Methadone (MTD) [...] Oxazepam (BZO) P 0 - 300 ng/ml 2-gisekjatyk-4,2-mifjzmsj-9,3-diphenylpyrrolidine (HOLLY P) N 0 - 300 ng/ml Methamphetamine (MET) N 0 - 1000 ng/ml Methylenedioxymethamphetamine (MDMA) N 0 - 500 ng/ml Morphine (MOP 300/GNL2758) N 0 - 300 ng/ml Methadone (MTD) N 0 - 300 ng/ml Phencyclidine (PCP) N 0 - 25 ng/ml Nortriptyline (TCA) N 0 - 1000 ng/ml Oxycodone N 0 - 300 ng/ml x N 0 - 300 ng/ml Reason For Referral No Information Medications Medication SIG (Take, Route, Frequency, Duration) Notes Start Date End Date Status Sertraline HCl 100 mg 1 tablet Orally ONCE DAILY; Duration: 30 days Active Acetaminophen Extra Strength 500 MG Oral 03/10/2023 Not-Taking hydrOXYzine Pamoate 25 MG Oral 03/10/2023 Not-Taking Sertraline HCl 100 MG Oral 03/10/2023 Not-Taking ProAir HFA 108 (90 Base) MCG/ACT Inhalation 03/10/2023 Active Docusate Sodium 100 MG Oral 03/10/2023 Not-Taking Fluticasone Propionate Diskus 50 MCG/ACT Inhalation *Reorder from [employer] for eRx and Interaction Alerts* 03/10/2023 Active oxyCODONE HCl 5 MG Oral 03/10/2023 Not-Taking Testosterone Cypionate 200 MG/ML Intramuscular 03/10/2023 Active Cetirizine HCl 10 MG Oral 03/10/2023 Not-Taking LORazepam 0.5 MG 1 tablet Orally Once a day; Duration: 14 days PRN 05/03/2025 Active Ibuprofen 600 MG Oral 03/10/2023 No t-Taking buPROPion HCl ER (SR) 150 MG Oral 03/10/2023 Not-Taking Methylphenidate HCl ER (OSM) 54 MG TAKE 1 TABLET BY MOUTH DAILY IN THE MORNING FOR 14 DAYS Oral; Duration: 14 Days Not-Taking valACYclovir HCl 500 MG Oral 03/10/2023 Not-Taking Methylphenidate HCl ER (OSM) 36 MG 1 tablet in the morning Oral Once a day; Duration: 30 days 06/23/2025 Active Ondansetron 4 MG Oral 03/10/2023 No t-Taking Sertraline HCl 50 MG Oral 03/10/2023 Not-Taking LORazepam 0.5 MG 1 tablet Orally Once a day; Duration: 14 days As needed 06/23/2025 Active valACYclovir HCl 1 GM Oral 03/10/2023 Not-Taking hydrOXYzine HCl 25 MG Oral 03/10/2023 Not-Taking Cyclobenzaprine HCl 5 MG Oral 03/10/2023 Not-Taking Immunizations Vaccine Route Administration Date Status [facility] Covid-19 Vaccine 1st dose Unknown 12/27/2021 Ad [...] Status Risk Notes Problem Generalized anxiety disorder (90514339) Generalized anxiety disorder (F41.1) 03/10/20 Active confirmed Problem Posttraumatic stress disorder (92678433) Post-traumatic stress disorder, chronic (F43.12) 03/10/20 Active confirmed Problem Adjustment disorder with mixed anxiety and depressed mood (562885159) Adjustment disorder with mixed anxiety and depressed mood (F43.23) 03/10/20 Active confirmed Problem Attention deficit hyperactivity disorder, predominantly inattentive type (disorder) (99061138) Attention and concentration deficit (R41.840) Active confirmed Problem Nondependent alcohol abuse in remission (797201143) Alcohol abuse, in remission (F10.11) 03/10/20 Active confirmed Problem Transsexual (finding) (776042592) 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 Problem Attention deficit hyperactivity disorder (210232954) Attention deficit hyperactivity disorder (ADHD), unspecified ADHD type (F90.9) Active confirmed Vital Signs Heart Rate 56 /min 05/26/2025 Height-cm 160.02 cm 05/26/2025 Blood pressure diastolic 66 mm Hg 05/26/2025 Weight-kg 66.5 kg 05/26/2025 Height 63.00 in 05/26/2025 Blood pressure systolic 100 mm Hg 05/26/2025 Weight 146.6 lbs 05/26/2025 BMI 25.97 kg/m2 05/26/2025 Encounters Encounter Location Date Provider Diagnosis [facility] [address] [facility] [address] [place] [address] 01/26/2025 Aristides Galvin Adjustment disorder with mixed anxiety and depressed mood F43.23 ; Generalized anxiety disorder F41.1 ; Tobacco use Z72.0 ; Alcohol abuse, in remission F10.11 ; Post-traumatic stress disorder, chronic F43.12 and Transsexualism F64.0 [facility] [address] [place] [address] 03/01/2025 Aristides Galvin Generalized anxiety disorder F41.1 ; Adjustment disorder with mixed anxiety and depressed mood F43.23 ; Alcohol abuse, in remission F10.11 ; Nicotine use Z72.0 ; Tobacco use Z72.0 ; Post-traumatic stress disorder, chronic F43.12 ; Encounter for screening for depression Z13.31 ; Encounter for screening for cardiovascular disorders Z13.6 and Transsexualism F64.0 [facility] [address] [facility] [address] [place] [address] 04/04/2025 Latonia Restrepo Post-traumatic stress disorder, chronic F43.12 ; Adjustment disorder with mixed anxiety and depressed mood F43.23 and Generalized anxiety disorder F41.1 [facility] [place] [address] [facility] [address] [facility] [address] [place] [address] 04/05/2025 Aristides Galvin Negative depression screening Z13.31 [...] F64.0 and Attention and concentration deficit R41.840 [facility] [place] [address] [facility] [address] [facility] [address] [place] [address] 04/07/2025 Facundo Glasgow Attention deficit hyperactivity disorder (ADHD), unspecified ADHD type F90.9 [facility] [address] [facility] [address] [place] [address] 04/21/2025 Aristides Donnellya Encounter for screening for depression Z13.31 ; Nicotine use Z72.0 ; Encounter for screening for cardiovascular disorders Z13.6 ; Generalized anxiety disorder F41.1 ; Adjustment disorder with mixed anxiety and depressed mood F43.23 ; Alcohol abuse, in remission F10.11 ; Tobacco use Z72.0 ; Post-traumatic stress disorder, chronic F43.12 ; Transsexualism F64.0 and Attention deficit hyperactivity disorder (ADHD) F90.9 [facility] [place] [address] [facility] [address] [facility] [address] [place] [address] 05/26/2025 Latonia Restrepo Generalized anxiety disorder F41.1 and Post-traumatic stress disorder, chronic F43.12 [place] [address] [facility] [address] [place] [address] 05/26/2025 Aristides Galvin Encounter for screening for cardiovascular disorders Z13.6 ; Encounter for screening for depression Z13.31 ; Nicotine use Z72.0 ; Generalized anxiety disorder F41.1 ; Adjustment disorder with mixed anxiety and depressed mood F43.23 ; Alcohol abuse, in remission F10.11 ; Tobacco use Z72.0 ; Post-traumatic stress disorder, chronic F43.12 ; Transsexualism F64.0 and Attention deficit hyperactivity disorder (ADHD) F90.9 [facility], [facility] [address] [place] [address] 06/09/2025 Latonia Restrepo Generalized anxiety disorder F41.1 ; Post-traumatic stress disorder, chronic F43.12 and Attention deficit hyperactivity disorder (ADHD), unspecified ADHD type F90.9 [facility], [facility] [address] [place] [address] 06/23/2025 Latonia Restrepo Generalized anxiety disorder F41.1 ; Post-traumatic stress disorder, chronic F43.12 and Attention deficit hyperactivity disorder (ADHD) F90.9 [facility], [facility] [address] [place] [address] 07/07/2025 Latonia Restrepo Post-traumatic stress disorder, chronic F43.12 and Generalized anxiety disorder F41.1 [facility], [facility] [address] [place] [address] 01/26/2025 Aristides Galvin [facility], [facility] [address] [place] [address] 06/09/2025 Aristides Galvin [facility], [facility] [address] [place] [address] 06/23/2025 Aristides Galvin Attention deficit hyperactivity disorder (ADHD) F90.9 and Generalized anxiety disorder F41.1 [facility], [facility] [address] [place] [address] 07/12/2025 Aristides Galvin [facility], [facility] [address] [place] [address] 07/14/2025 Aristidesomari Laooza [facility], [facility] [address] [place] [address] 01/27/2025 Aristidesomari Laooza Generalized anxiety disorder F41.1 [facility], [facility] [address] [place] [address] 01/27/2025 Aristides Laooza Generalized anxiety disorder F41.1 [facility], [facility] [address] [place] [address] 02/01/2025 Aristides Laooza [facility], [facility] [address] [place] [address] 02/01/2025 Aristides Galvin [facility], [facility] [address] [place] [address] 02/01/2025 Aristides Galvin [facility], [facility] [address] [place] [address] 02/02/2025 Aristides Galvin [facility], [facility] [address] [place] [address] 02/03/2025 Aristides Galvin [facility], [facility] [address] [place] [address] 02/16/2025 Aristides Galvin Generalized anxiety disorder F41.1 [facility], [facility] [address] [place] [address] 02/16/2025 Aristides Galvin Generalized anxiety disorder F41.1 [facility], [facility] [address] [place] [address] 03/11/2025 Aristides Galvin Generalized anxiety disorder F41.1 [facility], [facility] [address] [place] [address] 03/22/2025 Aristides Galvin [facility], [facility] [address] [place] [address] 05/02/2025 Aristides Galvin Attention deficit hyperactivity disorder (ADHD) F90.9 [facility], [facility] [address] [place] [address] 05/11/2025 Aristides Galvin Attention and concentration deficit R41.840 [facility], [facility] [address] [place] [address] 06/08/2025 Aristides Galvin Generalized anxiety disorder F41.1 [facility], [facility] [address] [place] [address] 06/13/2025 Aristides Galvin [facility], [facility] [address] [place] [address] 07/13/2025 Aristides Galvin Generalized anxiety disorder F41.1 [facility], [facility] [address] [place] [address] 07/14/2025 Aristides Galvin Assessments Encounter Date Diagnosis (ICD Code) Assessment Notes Treatment Notes Treatment Clinical Notes Section Notes 05/02/2025 Attention deficit hyperactivity disorder (ADHD) (ICD-10 - F90.9) 05/11/2025 Attention and concentration deficit (ICD-10 - R41.840) 05/26/2025 Encounter for screening for cardiovascular disorders (ICD-10 - Z13.6) 06/08/2025 Generalized anxiety disorder (ICD-10 - F41.1) 06/23/2025 Attention deficit hyperactivity disorder (ADHD) (ICD-10 - F90.9) 07/13/2025 Generalized anxiety disorder (ICD-10 - F41.1) 07/07/2025 Generalized anxiety disorder (ICD-10 - F41.1) 07/07/2025 Post-traumatic stress disorder, chronic (ICD-10 - F43.12) 06/23/2025 Generalized anxiety disorder (ICD-10 - F41.1) 06/23/2025 Post-traumatic stress disorder, chronic (ICD-10 - F43.12) 06/09/2025 Generalized anxiety disorder (ICD-10 - F41.1) 05/26/2025 Generalized anxiety disorder (ICD-10 - F41.1) 05/26/2025 Post-traumatic stress disorder, chronic (ICD-10 - F43.12) 04/04/2025 Post-traumatic stress disorder, chronic (ICD-10 - F43.12) 04/04/2025 Adjustment disorder with mixed anxiety and depressed mood (ICD-10 - F43.23) 01/26/2025 Adjustment disorder with mixed anxiety and depressed mood (ICD-10 - F43.23) 01/27/2025 Generalized anxiety disorder (ICD-10 - F41.1) 01/27/2025 Generalized anxiety disorder (ICD-10 - F41.1) 02/16/2025 Generalized anxiety disorder (ICD-10 - F41.1) 02/16/2025 Generalized anxiety disorder (ICD-10 - F41.1) 03/01/2025 Generalized anxiety disorder (ICD-10 - F41.1) 03/11/2025 Generalized anxiety disorder (ICD-10 - F41.1) 04/05/2025 Encounter for screening for cardiovascular disorders [...] +0.89 exceeding the clinical threshold of +0.745 Hyperactive/impuls rio symptoms are not present (score: -0.89) She [...] Exercises Recommend software-based tools (e.g., Cogmed or Lumosity) or paper-based executive function tasks Emphasize daily [...] and adaptive feedback from parents and educators 04/21/2025 Encounter for screening for depression (ICD-10 - Z13.31) 04/21/2025 Nicotine use (ICD-10 - Z72.0) 04/05/2025 Nicotine use (ICD-10 - Z72.0) 04/21/2025 Encounter for screening for cardiovascular disorders (ICD-10 - Z13.6) 03/01/2025 Adjustment disorder with mixed anxiety and depressed mood (ICD-10 - F43.23) 01/26/2025 Generalized anxiety disorder (ICD-10 - F41.1) 04/04/2025 Generalized anxiety disorder (ICD-10 - F41.1) 06/09/2025 Post-traumatic stress disorder, chronic (ICD-10 - F43.12) 06/23/2025 Attention deficit hyperactivity disorder (ADHD) (ICD-10 - F90.9) 06/23/2025 Generalized anxiety disorder (ICD-10 - F41.1) 05/26/2025 Encounter for screening for depression (ICD-10 - Z13.31) 05/26/2025 Nicotine use (ICD-10 - Z72.0) 06/09/2025 Attention deficit hyperactivity disorder (ADHD), unspecified ADHD type (ICD-10 - F90.9) 01/26/2025 Tobacco use (ICD-10 - Z72.0) 03/01/2025 Alcohol abuse, in remission (ICD-10 - F10.11) 04/05/2025 Generalized anxiety disorder (ICD-10 - F41.1) 04/21/2025 Generalized anxiety disorder (ICD-10 - F41.1) 03/01/2025 Nicotine use (ICD-10 - Z72.0) 04/21/2025 Adjustment disorder with mixed anxiety and depressed mood (ICD-10 - F43.23) 04/05/2025 Adjustment disorder with mixed anxiety and depressed mood (ICD-10 - F43.23) 01/26/2025 Alcohol abuse, in remission (ICD-10 - F10.11) 05/26/2025 Generalized anxiety disorder (ICD-10 - F41.1) 05/26/2025 Adjustment disorder with mixed anxiety and depressed mood (ICD-10 - F43.23) 01/26/2025 Post-traumatic stress disorder, chronic (ICD-10 - F43.12) 03/01/2025 Tobacco use (ICD-10 - Z72.0) 04/21/2025 Alcohol abuse, in remission (ICD-10 - F10.11) 04/05/2025 Alcohol abuse, in remission (ICD-10 - F10.11) 04/21/2025 Tobacco use (ICD-10 - Z72.0) 04/05/2025 Tobacco use (ICD-10 - Z72.0) 03/01/2025 Post-traumatic stress disorder, chronic (ICD-10 - F43.12) 01/26/2025 Transsexualism (ICD-10 - F64.0) 05/26/2025 Alcohol abuse, in remission (ICD-10 - F10.11) 05/26/2025 Tobacco use (ICD-10 - Z72.0) 03/01/2025 Encounter for screening for depression (ICD-10 - Z13.31) 04/05/2025 Post-traumatic stress disorder, chronic (ICD-10 - F43.12) 04/21/2025 Post-traumatic stress disorder, chronic (ICD-10 - F43.12) 04/05/2025 Encounter for screening for depression (ICD-10 - Z13.31) 04/21/2025 Transsexualism (ICD-10 - F64.0) 03/01/2025 Encounter for screening for cardiovascular disorders (ICD-10 - Z13.6) 05/26/2025 Post-traumatic stress disorder, chronic (ICD-10 - F43.12) 05/26/2025 Transsexualism (ICD-10 - F64.0) 03/01/2025 Transsexualism (ICD-10 - F64.0) 04/21/2025 Attention deficit hyperactivity disorder (ADHD) (ICD-10 - F90.9) 04/05/2025 Transsexualism (ICD-10 - F64.0) 04/05/2025 Attention [...] ADHD presentation. 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 This anxiety has led to catastrophic thinking and preparation for worst-case scenarios. - Plan: - Implement cognitive-behavior al techniques to manage catastrophic thinking - Teach grounding exercises for anxiety management - Encourage balanced media consumption to reduce exposure to anxiety-provoking content - Explore local LGBTQ+ support groups or resources for additional community support 04/05/2025 Ehsan Hairston, adult male with history of ADHD and substance use disorder, presents with worsening attention and concentration difficulties, impulsivity, and forgetfulness. Attention Deficit Hyperactivity Disorder (ADHD) Assessment: Patient reports a history of ADHD diagnosed in childhood and again during therapy in [place]. Symptoms have progressively worsened, possibly exacerbated by hormonal changes. Current symptoms include difficulty concentrating, impulsivity, impatience, frequent misplacement of items, and accident-proneness . Patient describes significant impact on daily functioning, [...] been made to correct them. 04/21/2025 Other Rizwan Hairston, adult male with history of ADHD, depression, [...] efforts have been made to correct them. 06/09/2025 Other Family Conflict and Parental Concerns - Assessment: Reji is experiencing significant family conflict and parental concerns regarding his stepson Mo. Mo has recently dropped out of high school and received an inheritance, which he is reportedly spending irresponsibly. Reji describes Mo as making bad decisions in the community and being attracted to a gangster life. This situation is causing distress for Reji, who appears to be at odds with Mo's mother, described as an enabler. - Plan: - Explore Reji's relationship with his stepson and to better understand family dynamics. - Discuss potential strategies for addressing Mo's behavior and school dropout. - Consider family therapy options to improve communication and resolve conflicts. - Provide education on effective parenting techniques for dealing with challenging adolescent behavior. Strained Maternal Relationship - Assessment: Reji reports having communication with his mother but describes their relationship as not being the best. This strained maternal relationship may be a source of ongoing stress or emotional difficulty for Reji, potentially impacting his current family dynamics and parenting approach. - Plan: - Explore Reji's relationship with his mother and its potential impact on his current family situation. - Discuss strategies for improving or coping with the maternal relationship, if desired by Rjei. Each section addresses a specific problem area and outlines a corresponding plan for treatment and support. 06/23/2025 Other Concern for Foster's Behavior - Assessment: Maurice expresses significant worry about his foster Hassan's current behavior, describing it as reckless and potentially indicative of a desire for a bad life or involvement in criminal activities. - Plan: - Explore Maurice's concerns about Mo's behavior in more depth - Discuss potential strategies for Maurice to address Mo's behavior and provide structure - Consider family therapy options to improve communication and relationships within the blended family Reflection on Past Experiences and Identity - Assessment: Maurice is processing his past experiences in relation to his current life situation. He mentions never receiving love and attention from his mother, which may have contributed to his seeking structure through the justice system. - Plan: - Continue to explore Maurice's past experiences and their impact on his current relationships and parenting style - Address any lingering effects of maternal attachment issues Sociopolitical Concerns - Assessment: Maurice expresses being bothered by the current state of politics, though specific details are not provided. This concern may be related to his experiences as a transgender individual or to broader societal issues that affect him and his family. - Plan: - Explore the specific political issues that are causing Maurice distress - Discuss coping strategies for managing stress related to sociopolitical concerns - Provide resources for constructive engagement in civic activities, if appropriate Each section addresses a specific area of concern for Maurice and outlines a corresponding plan for support and intervention. 07/07/2025 Other Reji, a school district employee, presents with concerns about irritability, anxiety, and potential self-sabotage, as well as family stressors related to his mjdtkv-ca-zde's drug abuse and concerns for his stepson. Irritability and Anxiety Assessment: Reji reports increased irritability, describing himself as having a short fuse and being brutally honest with others. He also experienced anxiety symptoms after consuming caffeine, which he attributed to withdrawal-like effects. These symptoms are impacting his interpersonal interactions and potentially his work performance. The patient's insight into his irritability is a positive prognostic factor, as he recognizes the need to address this issue. Plan: - Explore stress management techniques to help manage irritability and anxiety - Recommend limiting caffeine intake to reduce anxiety symptoms - Monitor irritability levels and their impact on daily functioning - Discuss healthy communication strategies to address brutally honest tendencies Risk of Self-Sabotage Assessment: Reji demonstrates insight into his tendency for self-sabotage, particularly in the context of his current positive employment situation. This self-awareness is a strength that can be leveraged in therapy. 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 Plan: - Develop a self-sabotage prevention plan - Identify triggers and warning signs of self-sabotaging behaviors - Explore cognitive-behavi oral strategies to challenge negative thought patterns - Set short-term goals for maintaining positive work performance Family Stressors Assessment: Reji reports significant family stressors, including his xiodqs-gc-ixf's drug abuse and concerns about his 's son, Mo. These issues may contribute to his overall stress levels and potentially exacerbate his irritability and anxiety symptoms. The impact of these family dynamics on Reji's mental health and daily functioning requires ongoing assessment and support. Plan: - Assess the impact of family stressors on Reji's mental health - Explore coping strategies for dealing with family-related stress - Discuss resources and support options for addressing wicvlz-zc-hwd's substance abuse - Evaluate need for family therapy or additional support for Mo Plan Of Treatment Next Appt Details Provider Name:Latonia Restrepo, 08/08/2025 04:00:00 PM, [address], [place], [address], Provider Name:Aristides chino, 08/17/2025 04:15:00 PM, [address], [address], [place], [address], Provider Name:Latonia Restrepo, 09/14/2025 04:00:00 PM, [address], [facility], [place], [address], Insurance Providers Payer Name Payer Address Payer Phone Subscriber Number Group Number Insured Name Patient Relationship to Insured Coverage Start Date Coverage End Date [place] [address] [address] [place] [address] [id number] Rizwan HAIRSTON Self - patient is the insured Medical [...] Surgical History Surgery Date(Month/Year) Unlisted procedure shoulder (49908) righ t Hysterectomy (33852) 07/29/2022 Other 08/15/2008
[2025-07-14 22:13] VITALS: BP 114/72; PULSE 108; RESP 17; TEMP 36.8; O2SAT 95
--- OUTSIDE RECORDS SUMMARY | 2025-07-15 00:49 | XMS_ITS | Patient Health Record ---
Author Organization [facility] Address [address] [facility] [address] [place] [address] Care Team Providers Care It Project Manager Name Role Phone Lynne Banuelos Primary Care Provider Mely Aristides Grady Unavailable [phone] Latonia Camarena Unavailable [phone] Facundo Glasgow Unavailable [phone] Allergies Allergen (clinical drug ingredient) Drug/Non Drug [...] Oxazepam (BZO) n 0 - 300 ng/ml 4-yianmivvvu-7,7-rdvcqqap-5,3-diphenylpyrrolidine (HOLLY P) n 0 - 300 ng/ml Methamphetamine (MET) n 0 - 1000 ng/ml Methylenedioxymethamphetamine (MDMA) n 0 - 500 ng/ml Morphine (MOP 300/FBA2670) n 0 - 300 ng/ml Methadone (MTD) [...] Oxazepam (BZO) P 0 - 300 ng/ml 4-igmgmjvwbo-9,8-hvdksdnm-4,3-diphenylpyrrolidine (HOLLY P) N 0 - 300 ng/ml Methamphetamine (MET) N 0 - 1000 ng/ml Methylenedioxymethamphetamine (MDMA) N 0 - 500 ng/ml Morphine (MOP 300/MOS0231) N 0 - 300 ng/ml Methadone (MTD) [...] Propionate Diskus 50 MCG/ACT Inhalation *Reorder from [facility] for eRx and Interaction Alerts* 03/10/2023 Active [...] Immunizations Vaccine Route Administration Date Status [facility]me [facility] Moderna Covid-19 Vaccine 1st dose Unknown 12/27/2021 [...] Status Risk Notes Problem Generalized anxiety disorder (38846381) Generalized anxiety disorder (F41.1) 03/10/20 Active confirmed Problem Posttraumatic stress disorder (47441024) Post-traumatic stress disorder, chronic (F43.12) 03/10/20 Active confirmed Problem Adjustment disorder with mixed anxiety and depressed mood (835394108) Adjustment disorder with mixed anxiety and depressed mood (F43.23) 03/10/20 Active confirmed Problem Attention deficit hyperactivity disorder, predominantly inattentive type (disorder) (51133953) Attention and concentration deficit (R41.840) Active confirmed Problem Nondependent alcohol abuse in remission (153232428) Alcohol abuse, in remission (F10.11) 03/10/20 Active confirmed Problem Transsexual (finding) (556758823) 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 Problem Attention deficit hyperactivity disorder (700021747) Attention deficit hyperactivity disorder (ADHD), unspecified ADHD type (F90.9) Active confirmed Vital Signs Heart Rate 56 /min 05/26/2025 Height-cm 160.02 cm 05/26/2025 Blood pressure diastolic 66 mm Hg 05/26/2025 Weight-kg 66.5 kg 05/26/2025 Height 63.00 in 05/26/2025 Blood pressure systolic 100 mm Hg 05/26/2025 Weight 146.6 lbs 05/26/2025 BMI 25.97 kg/m2 05/26/2025 Encounters Encounter Location Date Provider Diagnosis [facility] [address] [facility] [address] [place] [address] 01/26/2025 Aristides Galvin Adjustment disorder with mixed anxiety and depressed mood F43.23 ; Generalized anxiety disorder F41.1 ; Tobacco use Z72.0 ; Alcohol abuse, in remission F10.11 ; Post-traumatic stress disorder, chronic F43.12 and Transsexualism F64.0 [facility] [address] [place] [address] 03/01/2025 Aristides Galvin Generalized anxiety disorder F41.1 ; Adjustment disorder with mixed anxiety and depressed mood F43.23 ; Alcohol abuse, in remission F10.11 ; Nicotine use Z72.0 ; Tobacco use Z72.0 ; Post-traumatic stress disorder, chronic F43.12 ; Encounter for screening for depression Z13.31 ; Encounter for screening for cardiovascular disorders Z13.6 and Transsexualism F64.0 [facility] [address] [facility] [address] [place] [address] 04/04/2025 Latonia Restrepo Post-traumatic stress disorder, chronic F43.12 ; Adjustment disorder with mixed anxiety and depressed mood F43.23 and Generalized anxiety disorder F41.1 [facility] [place] [id number] [facility] [address] [facility] [address] [place] [address] 04/05/2025 Aristides Galvin Negative depression screening Z13.31 [...] F64.0 and Attention and concentration deficit R41.840 [facility] [place] [address] [facility] [address] [facility] [address] [place] [address] 04/07/2025 Facundo Glasgow Attention deficit hyperactivity disorder (ADHD), unspecified ADHD type F90.9 [facility] [address] [facility] [address] [place] [address] 04/21/2025 Aristides Donnellya Encounter for screening for depression Z13.31 ; Nicotine use Z72.0 ; Encounter for screening for cardiovascular disorders Z13.6 ; Generalized anxiety disorder F41.1 ; Adjustment disorder with mixed anxiety and depressed mood F43.23 ; Alcohol abuse, in remission F10.11 ; Tobacco use Z72.0 ; Post-traumatic stress disorder, chronic F43.12 ; Transsexualism F64.0 and Attention deficit hyperactivity disorder (ADHD) F90.9 [facility] [employer] [place] [address] [facility] [address] [facility] [address] [place] [address] 05/26/2025 Latonia Restrepo Generalized anxiety disorder F41.1 and Post-traumatic stress disorder, chronic F43.12 [place] [address] [facility] [address] [place] [address] 05/26/2025 Aristides Galvin Encounter for screening for cardiovascular disorders Z13.6 ; Encounter for screening for depression Z13.31 ; Nicotine use Z72.0 ; Generalized anxiety disorder F41.1 ; Adjustment disorder with mixed anxiety and depressed mood F43.23 ; Alcohol abuse, in remission F10.11 ; Tobacco use Z72.0 ; Post-traumatic stress disorder, chronic F43.12 ; Transsexualism F64.0 and Attention deficit hyperactivity disorder (ADHD) F90.9 [facility], [facility] [address] [place] [address] 06/09/2025 Latonia Restrepo Generalized anxiety disorder F41.1 ; Post-traumatic stress disorder, chronic F43.12 and Attention deficit hyperactivity disorder (ADHD), unspecified ADHD type F90.9 [facility], [facility] [address] [place] [address] 06/23/2025 Latonia Restrepo Generalized anxiety disorder F41.1 ; Post-traumatic stress disorder, chronic F43.12 and Attention deficit hyperactivity disorder (ADHD) F90.9 [facility], [facility] [address] [place] [address] 07/07/2025 Latonia Restrepo Post-traumatic stress disorder, chronic F43.12 and Generalized anxiety disorder F41.1 [facility], [facility] [address] [place] [address] 01/26/2025 Aristides Galvin [facility], [facility] [address] [place] [address] 06/09/2025 Aristides Galvin [facility], [facility] [address] [place] [address] 06/23/2025 Aristides Galvin Attention deficit hyperactivity disorder (ADHD) F90.9 and Generalized anxiety disorder F41.1 [facility], [facility] [address] [place] [address] 07/12/2025 Aristides Galvin [facility], [facility] [address] [place] [address] 07/14/2025 Aristidesomari Laooza [facility], [facility] [address] [place] [address] 01/27/2025 Aristidesomari Laooza Generalized anxiety disorder F41.1 [facility], [facility] [address] [place] [address] 01/27/2025 Aristides Laooza Generalized anxiety disorder F41.1 [facility], [facility] [address] [place] [address] 02/01/2025 Aristides Laooza [facility], [facility] [address] [place] [address] 02/01/2025 Aristides Galvin [facility], [facility] [address] [place] [address] 02/01/2025 Aristides Galvin [facility], [facility] [address] [place] [address] 02/02/2025 Aristides Galvin [facility], [facility] [address] [place] [address] 02/03/2025 Aristides Galvin [facility], [facility] [address] [place] [address] 02/16/2025 Aristides Galvin Generalized anxiety disorder F41.1 [facility], [facility] [address] [place] [address] 02/16/2025 Aristides Galvin Generalized anxiety disorder F41.1 [facility], [facility] [address] [place] [address] 03/11/2025 Aristides Galvin Generalized anxiety disorder F41.1 [facility], [facility] [address] [place] [address] 03/22/2025 Aristides Galvin [facility], [facility] [address] [place] [address] 05/02/2025 Aristides Galvin Attention deficit hyperactivity disorder (ADHD) F90.9 [facility], [facility] [address] [place] [address] 05/11/2025 Aristides Galvin Attention and concentration deficit R41.840 [facility], [facility] [address] [place] [address] 06/08/2025 Aristides Galvin Generalized anxiety disorder F41.1 [facility], [facility] [address] [place] [address] 06/13/2025 Aristides Galvin [facility], [facility] [address] [place] [address] 07/13/2025 Aristides Galvin Generalized anxiety disorder F41.1 [facility], [facility] [address] [place] [address] 07/14/2025 Aristides Galvin Assessments Encounter Date Diagnosis (ICD Code) Assessment Notes Treatment Notes Treatment Clinical Notes Section Notes 05/02/2025 Attention deficit hyperactivity disorder (ADHD) (ICD-10 - F90.9) 05/11/2025 Attention and concentration deficit (ICD-10 - R41.840) 06/23/2025 Attention deficit hyperactivity disorder (ADHD) (ICD-10 - F90.9) 06/09/2025 Generalized anxiety disorder (ICD-10 - F41.1) 06/08/2025 Generalized anxiety disorder (ICD-10 - F41.1) 07/13/2025 Generalized anxiety disorder (ICD-10 - F41.1) 01/27/2025 Generalized anxiety disorder (ICD-10 - F41.1) 07/07/2025 Generalized anxiety disorder (ICD-10 - F41.1) 07/07/2025 Post-traumatic stress disorder, chronic (ICD-10 - F43.12) 06/23/2025 Generalized anxiety disorder (ICD-10 - F41.1) 06/23/2025 Post-traumatic stress disorder, chronic (ICD-10 - F43.12) 04/21/2025 Encounter for screening for depression (ICD-10 - Z13.31) 04/21/2025 Nicotine use (ICD-10 - Z72.0) 05/26/2025 Encounter for screening for cardiovascular disorders (ICD-10 - Z13.6) 05/26/2025 Generalized anxiety disorder (ICD-10 - F41.1) 05/26/2025 Post-traumatic stress disorder, chronic (ICD-10 - F43.12) 03/11/2025 Generalized anxiety disorder (ICD-10 - F41.1) 01/26/2025 Adjustment disorder with mixed anxiety and depressed mood (ICD-10 - F43.23) 01/27/2025 Generalized anxiety disorder (ICD-10 - F41.1) 02/16/2025 Generalized anxiety disorder (ICD-10 - F41.1) 02/16/2025 Generalized anxiety disorder (ICD-10 - F41.1) 03/01/2025 Generalized anxiety disorder (ICD-10 - F41.1) 04/04/2025 [...] and adaptive feedback from parents and educators 04/05/2025 Nicotine use (ICD-10 - Z72.0) 03/01/2025 Adjustment disorder with mixed anxiety and depressed mood (ICD-10 - F43.23) 04/04/2025 Generalized anxiety disorder (ICD-10 - F41.1) 01/26/2025 Generalized anxiety disorder (ICD-10 - F41.1) 06/23/2025 Generalized anxiety disorder (ICD-10 - F41.1) 05/26/2025 Encounter for screening for depression (ICD-10 - Z13.31) 04/21/2025 Encounter for screening for cardiovascular disorders (ICD-10 - Z13.6) 06/23/2025 Attention deficit hyperactivity disorder (ADHD) (ICD-10 - F90.9) 06/09/2025 Post-traumatic stress disorder, chronic (ICD-10 - F43.12) 06/09/2025 Attention deficit hyperactivity disorder (ADHD), unspecified ADHD type (ICD-10 - F90.9) 05/26/2025 Nicotine use (ICD-10 - Z72.0) 03/01/2025 Alcohol abuse, in remission (ICD-10 - F10.11) 01/26/2025 Tobacco use (ICD-10 - Z72.0) 04/21/2025 Generalized anxiety disorder (ICD-10 - F41.1) 04/05/2025 Generalized anxiety disorder (ICD-10 - F41.1) 04/05/2025 Adjustment disorder with mixed anxiety and depressed mood (ICD-10 - F43.23) 01/26/2025 Alcohol abuse, in remission (ICD-10 - F10.11) 03/01/2025 Nicotine use (ICD-10 - Z72.0) 04/21/2025 [...] stress disorder, chronic (ICD-10 - F43.12) 05/26/2025 Alcohol abuse, in remission (ICD-10 - F10.11) 04/21/2025 Tobacco use (ICD-10 - Z72.0) 05/26/2025 Tobacco use (ICD-10 - Z72.0) 03/01/2025 Encounter for screening for depression (ICD-10 - Z13.31) 04/05/2025 Post-traumatic stress disorder, chronic (ICD-10 - F43.12) 04/21/2025 Post-traumatic stress disorder, chronic (ICD-10 - F43.12) 04/05/2025 Encounter for screening for depression (ICD-10 - Z13.31) 03/01/2025 Encounter for screening for cardiovascular disorders (ICD-10 - Z13.6) 04/21/2025 Transsexualism (ICD-10 - F64.0) 05/26/2025 Post-traumatic stress disorder, chronic (ICD-10 - F43.12) 04/21/2025 Attention deficit hyperactivity disorder (ADHD) (ICD-10 [...] ADHD presentation. 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 Symptoms have progressively worsened, possibly exacerbated by [...] with the maternal relationship, if desired by Reji. Each section addresses a specific problem area [...] well as family stressors related to his ewinsv-ye-jpc's drug abuse and concerns for his stepson. [...] Reji reports significant family stressors, including his iyqaqz-dk-hyr's drug abuse and concerns about his 's [...] Discuss resources and support options for addressing yvpqsp-xm-fad's substance abuse - Evaluate need for family therapy or additional support for Mo Plan Of Treatment Next Appt Details Provider Name:Latonia Restrepo, 08/08/2025 04:00:00 PM, [address], [place], [address], Provider Name:Aristides chino, 08/17/2025 04:15:00 PM, [address], [place], [address], Provider Name:Latonia Restrepo, 09/14/2025 04:00:00 PM, [address], [facility] [address], [place], [address], Insurance Providers Payer Name Payer Address Payer Phone Subscriber Number Group Number Insured Name Patient Relationship to Insured Coverage Start Date Coverage End Date Umr [address] [address] [place] [address] [id number] Rizwan HAIRSTON Self - patient is the [...] Surgical History Surgery Date(Month/Year) Unlisted procedure shoulder (70217) righ t Hysterectomy (94341) 07/29/2022 Other 08/15/2008
== END 2025-07-14 23:59 | disposition left against medical advice (07) ==
LOC: ANHED 07-15 00:47
DX: F41.0 Panic disorder [episodic paroxysmal anxiety] (principal)
CPT/HCPCS: 99199